=== PATIENT | female | born 1990 | race Caucasian/White ===

== ENCOUNTER 2021-04-01 15:15 | Inpatient (IN) | payer MEDICAID ==
[~2021-04-01] VITALS: Ht 160 cm; Wt 80.6 kg
[2021-04-01] VITALS (30 sets, daily range): BP systolic 117–214; BP diastolic 68–116
[2021-04-01 16:41] LABS: AMPHETAMINE SCREEN, URINE POSITIVE (NEGATIVE); BARBITURATE SCREEN URINE NEGATIVE (NEGATIVE); BENZODIAZEPINES SCREEN URINE NEGATIVE (NEGATIVE); CANNABINOID SCREEN, URINE NEGATIVE (NEGATIVE); COCAINE SCREEN URINE NEGATIVE (NEGATIVE); METHADONE STAT NEGATIVE (NEGATIVE); METHAMPHETAMINE SCREEN URINE S POSITIVE (NEGATIVE); OPIATE SCREEN URINE NEGATIVE (NEGATIVE); OXYCODONE STAT NEGATIVE (NEGATIVE); PROPOXYPHENE STAT NEGATIVE (NEGATIVE); TRICYCLIC ANTIDEPRESSANTS SCRE NEGATIVE (NEGATIVE)
[2021-04-01 16:45] LABS: BASOPHILS # (AUTO) 0.1 10^3/uL (0.0-0.1); BASOPHILS % (AUTO) 1 % (0-10); EOSINOPHILS # (AUTO) 0.3 10^3/uL (0.0-0.3); EOSINOPHILS % (AUTO) 4 % (0-10); HEMATOCRIT 40 % (35-52); HEMOGLOBIN 12.9 g/dL (11.5-16.0); LYMPHOCYTES # (AUTO) 1.4 10^3/uL (1.0-4.0); LYMPHOCYTES % (AUTO) 16 % (12-44); MEAN CORPUSCULAR HEMOGLOBIN 26 pg (25-34); MEAN CORPUSCULAR HGB CONC 32 g/dL (32-36); MEAN CORPUSCULAR VOLUME 80 fL (80-99); MONOCYTES # (AUTO) 1.3 10^3/uL (0.0-1.0); MONOCYTES % (AUTO) 15 % (0-12); NEUTROPHILS # (AUTO) 5.4 10^3/uL (1.8-7.8); NEUTROPHILS % (AUTO) 64 % (42-75); PLATELET COUNT 177 10^3/uL (130-400); WHITE BLOOD COUNT 8.5 10^3/uL (4.3-11.0)
[2021-04-01 16:52] LABS: URINE CREATININE FOR RATIO 45 MG/DL (30-125)
[2021-04-01 16:53] LABS: URINE PROTEIN FOR RATIO ONLY < 6 MG/DL (6-12)
[2021-04-01 16:58] LABS: POTASSIUM 3.7 MMOL/L (3.6-5.0)
[2021-04-01 16:59] LABS: CALCIUM 9.2 MG/DL (8.5-10.1)
[2021-04-01 17:01] LABS: TOTAL PROTEIN 6.1 GM/DL (6.4-8.2)
[2021-04-01 17:02] LABS: BILIRUBIN,TOTAL 0.2 MG/DL (0.1-1.0)
[2021-04-01 17:04] LABS: CREATININE SERUM 0.69 MG/DL (0.60-1.30)
[2021-04-01 17:17] LABS: ATYPICAL LYMPHOCYTES 1 %; BURR CELLS SLIGHT; EOSINOPHILS % (MANUAL) 5 %; LYMPHOCYTES % (MANUAL) 16 %; MONOCYTES % (MANUAL) 14 %; NEUTROPHILS % (MANUAL) 64 %; POLYCHROMASIA SLIGHT
[2021-04-01] MEDS ORDERED: fentaNYL 2 mcg/ml BUPIVA 0.125 100 ML ONE (20:50)
--- NOTE | 2021-04-01 20:50 | History & Physical-OB/GYN ---
CAMRYN NUNEZ 04/01/212049: OB - Chief Complaint & HPI Date/Time Date of Admission: Date of Admission: Apr 01, 2021 at 15:15 Date seen by a Provider: Apr 01, 2021 Time Seen by a Provider: 20:40 Chief Complaint/History OB-Reason for Admission/Chief: Obstetrical Complication (Gestational hypertension) Hx : 2 Hx Para: 1 Hx Last Menstrual Period: 07/12/2020 Expected Date of Delivery: Apr 08, 2021 Gestational Age in Weeks: 39 Gestational Age in Days: 0 Indication for induction: medical complication (Gestational hypertension) Admission Nurse Assessment Rev: Yes History of Labs Maternal blood type A+, RNI, GBS unknown, GDM unknown Allergies and Home Medications Allergies Coded Allergies: No Known Drug Allergies (Unverified , 04/01/21) Patient Home Medication List Home Medication List Reviewed: Yes OB - History Hx of Present Care: Yes Ultrasounds: Other (Anatomy US conducted at gestation of 33w6d) Obstetrical Complications: Gestational Hypertension (Blood pressures in clinic today before admitting were 162-168/98-104) Medical Complications: Other (Methamphetamine use, social concerns) Patient Past Medical History Asthma, , COVID, tobacco use, methamphetamine use Immunizations Hepatitis A: Yes Hepatitis B: Yes OB - Admission Exam Physical Exam Vitals: Vital Signs 04/01/21 04/01/21 15:31 19:00 Temp 36.7 Pulse 117 Resp 20 B/P (MAP) 129/101 (110) Pulse Ox 99 O2 Delivery Room Air Abdomen: Gravid Extremities: Normal (No edema present) Cervical Dilatation: 2cm Accelerations: Accelerations Present (Moderate accelerations present) Decelerations: No Decelerations (No decelerations present) Short Term Variability: Absent Half-Way Variability: Absent (0-2) Contractions on Admission: < 5 Minutes Apart Intensity: Mild (Mild contractions at this time) Keller Scoring Tool (Modified) Dilation (cm): 1-2cm (1) Labs Laboratory Tests Test 04/01/21 15:20 04/01/21 16:35 Range/Units Urine Protein < 6 L 6-12 MG/DL Urine Creatinine 45 30-125 MG/DL Urine Protein/Creatinine Ratio Urine Opiates Screen NEGATIVE NEGATIVE Urine Oxycodone Screen NEGATIVE NEGATIVE Urine Methadone Screen NEGATIVE NEGATIVE Urine Propoxyphene Screen NEGATIVE NEGATIVE Urine Barbiturates Screen NEGATIVE NEGATIVE Ur Tricyclic Antidepressants Screen NEGATIVE NEGATIVE Urine Phencyclidine Screen NEGATIVE NEGATIVE Urine Amphetamines Screen POSITIVE H NEGATIVE Urine Methamphetamines Screen POSITIVE H NEGATIVE Urine Benzodiazepines Screen NEGATIVE NEGATIVE Urine Cocaine Screen NEGATIVE NEGATIVE Urine Cannabinoids Screen NEGATIVE NEGATIVE White Blood Count 8.5 4.3-11.0 10^3/uL Red Blood Count 5.00 3.80-5.11 10^6/uL Hemoglobin 12.9 11.5-16.0 g/dL Hematocrit 40 35-52 % Mean Corpuscular Volume 80 80-99 fL Mean Corpuscular Hemoglobin 26 25-34 pg Mean Corpuscular Hemoglobin Concent 32 32-36 g/dL Red Cell Distribution Width 14.6 H 10.0-14.5 % Platelet Count 177 130-400 10^3/uL Mean Platelet Volume 12.0 9.0-12.2 fL Immature Granulocyte % (Auto) 1 % Neutrophils (%) (Auto) 64 42-75 % Lymphocytes (%) (Auto) 16 12-44 % Monocytes (%) (Auto) 15 H 0-12 % Eosinophils (%) (Auto) 4 0-10 % Basophils (%) (Auto) 1 0-10 % Neutrophils # (Auto) 5.4 1.8-7.8 10^3/uL Lymphocytes # (Auto) 1.4 1.0-4.0 10^3/uL Monocytes # (Auto) 1.3 H 0.0-1.0 10^3/uL Eosinophils # (Auto) 0.3 0.0-0.3 10^3/uL Basophils # (Auto) 0.1 0.0-0.1 10^3/uL Immature Granulocyte # (Auto) 0.1 0.0-0.1 10^3/uL Neutrophils % (Manual) 64 % Lymphocytes % (Manual) 16 % Monocytes % (Manual) 14 % Eosinophils % (Manual) 5 % Atypical Lymphocytes 1 % Polychromasia SLIGHT Contreras Cells SLIGHT Sodium Level 136 135-145 MMOL/L Potassium Level 3.7 3.6-5.0 MMOL/L Chloride Level 108 H 98-107 MMOL/L Carbon Dioxide Level 21 21-32 MMOL/L Anion Gap 7 5-14 MMOL/L Blood Urea Nitrogen 6 L 7-18 MG/DL Creatinine 0.69 0.60-1.30 MG/DL Estimat Glomerular Filtration Rate 101 BUN/Creatinine Ratio 9 Glucose Level 84 70-105 MG/DL Uric Acid 4.0 2.6-7.2 MG/DL Calcium Level 9.2 8.5-10.1 MG/DL Corrected Calcium 10.0 8.5-10.1 MG/DL Total Bilirubin 0.2 0.1-1.0 MG/DL Aspartate Amino Transf (AST/SGOT) 23 5-34 U/L Alanine Aminotransferase (ALT/SGPT) 15 0-55 U/L Alkaline Phosphatase 201 H 40-136 U/L Lactate Dehydrogenase 271 H 125-220 U/L Total Protein 6.1 L 6.4-8.2 GM/DL Albumin 3.0 L 3.2-4.5 GM/DL OB - Assessment/Plan/Diagnosis Assessment Assessment: induction of labor (Induction of labor due to gestational hypertension) Admission Dx Gestational hypertension Admission Status: Inpatient Order (span 2 midnights) Reason for Inpatient Admission: Gestational hypertension Plan Plan: Induction (Induction of labor due to gestational hypertension) REBECCA HENNING MD 04/02/21 1154: Allergies and Home Medications Allergies Coded Allergies: No Known Drug Allergies (Unverified , 04/01/21) OB - Admission Exam Physical Exam Accelerations: Accelerations Present (Moderate accelerations present) Decelerations: No Decelerations (No decelerations present) Half-Way Variability: Average (6-25) Keller Scoring Tool (Modified) Dilation (cm): 1-2cm (1) Effacement (%): 0-30% (0) Descent/Station: -3 (0) Cervix Consistency: Soft (2) Cervix Position: Posterior (0) Add 1 point for: Each previous vaginal delivery (1) Keller Score: 4 OB - Assessment/Plan/Diagnosis Plan Problems: (1) Elevated blood pressure affecting in third trimester, antepartum Assessment & Plan: Check preeclampsia labs, labetalol if needed for BP >160/105 (2) Methamphetamine abuse Assessment & Plan: creative services manager consult (3) Limited care Qualifiers: Qualified Codes: O09.33 - Supervision of with insufficient care, third trimester (4) GBS screening not performed Assessment & Plan: Will monitor temperature, start abx if fever or if prolonged ROM. (5) Rubella non-immune status, antepartum Assessment & Plan: MMR (6) 39 weeks gestation of Supervisory-Addendum Brief Verification & Attestation Participated in pt care: history, MDM, physical Personally performed: exam, history Care discussed with: Medical Student Procedures: n/a Verification and Attestation of Medical Student E/M Service A medical student performed and documented this service in my presence. I reviewed and verified all information documented by the medical student and made modifications to such information, when appropriate. I personally performed the physical exam and medical decision making. See problem list for my assessment and plan, and my physical exam for FHT and Keller score. Rebecca Henning, Apr 02, 2021,11:56 CAMRYN NUNEZ Apr 01, 2021 20:50 REBECCA HENNING MD Apr 02, 2021 11:54
[2021-04-01] MEDS ORDERED: D5 LR IV SOLUTION 1,000 ML IV ONE (20:51)
[2021-04-01] MEDS ORDERED: fentaNYL INJ 100 MCG/2 ML AMP ONE (21:09)
[2021-04-01] MEDS ORDERED: BUPIVACAINE 0.25% 30 ML (SENSORCAINE) VIAL ONE (21:09)
[2021-04-01] MEDS ORDERED: D5 LR IV SOLUTION 1,000 ML IV SCH (21:15)
[2021-04-01] MEDS: LACTATED RINGERS 1,000 ML IV SCH (21:19)
[2021-04-01] MEDS: D5 LR IV SOLUTION 1,000 ML IV SCH (21:20)
[2021-04-01] MEDS ORDERED: LIDOCAINE/EPI 2% 1:100,00 (XYLOCAINE) 20 ML VIAL INJ ONE (21:30)
[2021-04-01] MEDS ORDERED: NALOXONE 0.4 MG/ML 1 ML (NARCAN) VIAL IV PRN (21:30)
[2021-04-01] MEDS ORDERED: MINERAL OIL CONCENTRATE 99.9% 15 ML UDC PO ONE (21:30)
[2021-04-01] MEDS: fentaNYL 2 mcg/ml BUPIVA 0.125 100 ML IV SCH (21:40)
[2021-04-01] MEDS ORDERED: fentaNYL INJ 100 MCG/2 ML AMP INJ ONE (21:45)
[2021-04-01] MEDS ORDERED: CATHETER FLUSH 10 ML SYR IV SCH (22:00)
[2021-04-02] VITALS (62 sets, daily range): BP systolic 126–188; BP diastolic 67–118
[2021-04-02] MEDS ORDERED: fentaNYL 2 mcg/ml BUPIVA 0.125 100 ML IV SCH
[2021-04-02] MEDS ORDERED: METHYLERGONOVINE 0.2 MG (MEHTERGINE) TAB PO ONE (02:42)
[2021-04-02] MEDS ORDERED: OXYTOCIN PRE-MIX DRIP 500 ML IV ONE (04:35)
[2021-04-02] MEDS ORDERED: OXYTOCIN PRE-MIX DRIP 500 ML IV SCH (04:45)
[2021-04-02] MEDS: D5 LR IV SOLUTION 1,000 ML IV SCH (04:46)
[2021-04-02] MEDS: fentaNYL 2 mcg/ml BUPIVA 0.125 100 ML IV SCH (05:21)
[2021-04-02] MEDS: LACTATED RINGERS 1,000 ML IV SCH ×2 (07:44→07:45)
--- NOTE | 2021-04-02 07:59 | Labor Progress Note ---
Labor Progress Note Labor Progress Note Date Seen by Provider: Apr 02, 2021 Time Seen by Provider: 07:57 Subjective: Pt denies complaints. Objective: Cervical exam: /-3 Consistency: soft Position: mid Presentation: vertex heart tones: 150 beats per minute, moderate variability, no decels Tocometer: 4-5 ctx/10 minutes Assessment/Plan: Mago Chilel is a (30 /Para 2 / 1,Gestational Age (wks)39 here for IOL for gestational HTN. AROM done at time of exam with clear fluid. CEFM/TOCO Continue pitocin Anesthesia: epidural Anticipate vaginal delivery. Vitals - Labs Vital Signs - I&O Vital Signs Date Time Temp Pulse Resp B/P (MAP) Pulse Ox O2 Delivery O2 Flow Rate FiO2 04/02/21 07:00 94 18 158/97 (117) 98 04/02/21 06:45 95 18 162/92 (115) 97 04/02/21 06:30 37.2 106 18 141/92 (108) 100 04/02/21 06:15 98 18 136/102 (113) 98 04/02/21 06:00 102 18 141/105 (117) 97 04/02/21 05:45 104 18 137/99 (112) 97 04/02/21 05:30 115 18 130/74 (92) 98 04/02/21 05:15 109 18 136/91 (106) 97 04/02/21 05:00 117 18 159/72 (101) 98 04/02/21 04:45 106 18 147/81 (103) 97 04/02/21 04:30 96 18 159/68 (98) 97 04/02/21 04:15 100 18 156/95 (115) 97 04/02/21 04:00 96 18 138/94 (109) 97 04/02/21 03:45 108 18 154/82 (106) 97 04/02/21 03:30 108 18 164/92 (116) 100 04/02/21 03:15 111 18 147/93 (111) 99 04/02/21 03:00 97 18 145/99 (114) 99 04/02/21 02:45 95 18 144/95 (111) 99 04/02/21 02:30 94 18 142/93 (109) 99 04/02/21 02:15 96 18 155/100 (118) 100 10/7/21 02:00 118 18 126/92 (103) 98 04/02/21 01:45 131 18 126/76 (93) 99 04/02/21 01:35 36.8 04/02/21 01:30 112 18 151/87 (108) 98 04/02/21 01:15 113 18 154/91 (112) 100 04/02/21 01:00 109 18 167/98 (121) 98 04/02/21 00:45 116 18 141/96 (111) 98 04/02/21 00:30 110 18 135/95 (108) 97 04/02/21 00:15 115 18 139/98 (112) 97 04/02/21 00:00 111 18 154/105 (121) 100 04/01/21 23:45 103 18 151/102 (118) 100 04/01/21 23:30 114 18 151/99 (116) 99 04/01/21 23:15 98 18 151/103 (119) 99 04/01/21 23:00 107 20 150/101 (117) 99 04/01/21 22:45 111 20 130/85 (100) 99 04/01/21 22:30 120 20 117/68 (84) 98 04/01/21 22:10 121 80 138/88 (105) 97 04/01/21 22:05 121 80 138/88 (105) 97 04/01/21 22:00 110 20 143/68 (93) 98 04/01/21 21:55 112 80 139/88 (105) 98 04/01/21 21:50 113 80 133/86 (102) 98 04/01/21 21:45 115 80 173/97 (122) 98 04/01/21 21:40 148 80 148/80 (102) 98 04/01/21 21:35 114 20 140/68 (92) 99 04/01/21 21:30 106 20 158/99 (118) 100 04/01/21 21:25 109 20 169/97 (121) 98 04/01/21 21:20 105 20 146/89 (108) 100 04/01/21 21:15 96 20 135/91 (106) 99 04/01/21 21:15 37.0 04/01/21 21:00 104 20 136/88 (104) 99 04/01/21 20:45 104 20 130/83 (99) 04/01/21 20:30 101 20 143/102 (116) 04/01/21 20:15 110 20 167/107 (127) 04/01/21 20:00 100 20 157/94 (115) 04/01/21 19:35 107 20 214/115 (148) 04/01/21 19:00 117 20 129/101 (110) 04/01/21 18:30 88 20 153/110 (124) 04/01/21 18:00 120 20 175/116 (135) 04/01/21 17:35 107 20 140/104 (116) 04/01/21 16:00 101 20 140/82 (101) 04/01/21 15:31 36.7 103 20 99 Room Air I & O 04/02/21 07:00 Intake Total 2100 ml Balance 2100 ml Labs Laboratory Tests 04/01/21 15:20: Urine Protein < 6L, Urine Creatinine 45, Urine Protein/Creatinine Ratio , Urine Opiates Screen NEGATIVE, Urine Oxycodone Screen NEGATIVE, Urine Methadone Screen NEGATIVE, Urine Propoxyphene Screen NEGATIVE, Urine Barbiturates Screen NEGATIVE, Ur Tricyclic Antidepressants Screen NEGATIVE, Urine Phencyclidine Screen NEGATIVE, Urine Amphetamines Screen POSITIVEH, Urine Methamphetamines Screen POSITIVEH, Urine Benzodiazepines Screen NEGATIVE, Urine Cocaine Screen NEGATIVE, Urine Cannabinoids Screen NEGATIVE 04/01/21 16:35: White Blood Count 8.5, Red Blood Count 5.00, Hemoglobin 12.9, Hematocrit 40, Mean Corpuscular Volume 80, Mean Corpuscular Hemoglobin 26, Mean Corpuscular Hemoglobin Concent 32, Red Cell Distribution Width 14.6H, Platelet Count 177, Mean Platelet Volume 12.0, Immature Granulocyte % (Auto) 1, Neutrophils (%) (Auto) 64, Lymphocytes (%) (Auto) 16, Monocytes (%) (Auto) 15H, Eosinophils (%) (Auto) 4, Basophils (%) (Auto) 1, Neutrophils # (Auto) 5.4, Lymphocytes # (Auto) 1.4, Monocytes # (Auto) 1.3H, Eosinophils # (Auto) 0.3, Basophils # (Auto) 0.1, Immature Granulocyte # (Auto) 0.1, Neutrophils % (Manual) 64, Lymphocytes % (Manual) 16, Monocytes % (Manual) 14, Eosinophils % (Manual) 5, Atypical Lymphocytes 1, Polychromasia SLIGHT, Contreras Cells SLIGHT, Sodium Level 136, Potassium Level 3.7, Chloride Level 108H, Carbon Dioxide Level 21, Anion Gap 7, Blood Urea Nitrogen 6L, Creatinine 0.69, Estimat Glomerular Filtration Rate 101, BUN/Creatinine Ratio 9, Glucose Level 84, Uric Acid 4.0, Calcium Level 9.2, Corrected Calcium 10.0, Total Bilirubin 0.2, Aspartate Amino Transf (AST/SGOT) 23, Alanine Aminotransferase (ALT/SGPT) 15, Alkaline Phosphatase 201H, Lactate Dehydrogenase 271H, Total Protein 6.1L, Albumin 3.0L KAYA HENNING MD Apr 02, 2021 07:59
[2021-04-02] MEDS ORDERED: LIDOCAINE/EPI 2% 1:200,00 (XYLOCAINE) 20 ML VIAL ONE (10:44)
--- NOTE | 2021-04-02 11:47 | OB Labor & Delivery Record ---
Vag Delivery Note Vag Delivery Note Date of Delivery: 04/02/21 Preoperative Diagnosis: Mago Chilel is a (30 /Para 2 / 1,Gestational Age (wks)39with 1 day Postoperative Diagnosis: Same Surgeon: KAYA HENNING Reservations Specialist: Chelly Mosqueda, OMS3 Anesthesia: Epidural Delivery Type: Findings: Viable female infant, apgars 8/10, weight 6#8 Lacerations: periurethral abrasion, first degree perineal Intact placenta with 3 vessel cord. No nuchal cord or shoulder dystocia, bandolero cord noted. Cytotec 800 mcg placed for hemorrhage prophylaxis Estimated Blood Loss: 400 ml Complications: None Condition: Stable Description of Procedure: The patient is a 30 year old female who presented for IOL due to GHTN. She was admitted and informed consent was obtained. Her labor course was remarkable for HTN and urine drug screen positive for methamphetamines. She progressed to complete dilatation and began to push. She was then set up for delivery. The infant's head was delivered atraumatically in the BALTA position. The shoulders and remainder of the infant's body were then delivered without difficulty. Upon delivery, the was placed on maternal abdomen. The cord was doubly clamped and cut and the was handed off to the pediatric staff. An intact placenta with 3-vessel cord delivered via Maria Guadalupe and there was found to be moderate bleeding.~ Vigorous fundal massage was performed and the fundus was found to be firm. IV oxytocin was given. Examina tion of the vagina and perineum revealed a perirethral abrasion and a first degree perineal laceration repaired in the usual fashion with 3-0 vicryl rapide suture. Following the repair, sponge, instrument and needle counts were correct. Mom and baby were both in stable condition in the labor suite. Vitals - Labs Vital Signs - I&O Vital Signs Date Time Temp Pulse Resp B/P (MAP) Pulse Ox O2 Delivery O2 Flow Rate FiO2 04/02/21 08:46 99 18 136/67 (90) 100 Non Rebreather 15.00 04/02/21 08:45 81 18 173/102 (125) 100 Non Rebreather 15.00 04/02/21 08:30 103 18 150/101 (117) 99 Room Air 04/02/21 08:15 105 18 141/101 (114) 99 Room Air 04/02/21 08:00 108 18 138/94 (109) 99 Room Air 04/02/21 07:45 88 18 145/100 (115) 99 Room Air 04/02/21 07:30 93 18 141/101 (114) 98 Room Air 04/02/21 07:15 98 18 146/89 (108) 98 Room Air 04/02/21 07:00 94 18 158/97 (117) 98 04/02/21 06:45 95 18 162/92 (115) 97 04/02/21 06:30 37.2 106 18 141/92 (108) 100 04/02/21 06:15 98 18 136/102 (113) 98 04/02/21 06:00 102 18 141/105 (117) 97 04/02/21 05:45 104 18 137/99 (112) 97 04/02/21 05:30 115 18 130/74 (92) 98 04/02/21 05:15 109 18 136/91 (106) 97 04/02/21 05:00 117 18 159/72 (101) 98 04/02/21 04:45 106 18 147/81 (103) 97 04/02/21 04:30 96 18 159/68 (98) 97 04/02/21 04:15 100 18 156/95 (115) 97 04/02/21 04:00 96 18 138/94 (109) 97 04/02/21 03:45 108 18 154/82 (106) 97 04/02/21 03:30 108 18 164/92 (116) 100 04/02/21 03:15 111 18 147/93 (111) 99 04/02/21 03:00 97 18 145/99 (114) 99 04/02/21 02:45 95 18 144/95 (111) 99 04/02/21 02:30 94 18 142/93 (109) 99 04/02/21 02:15 96 18 155/100 (118) 100 04/02/21 02:00 118 18 126/92 (103) 98 04/02/21 01:45 131 18 126/76 (93) 99 04/02/21 01:35 36.8 04/02/21 01:30 112 18 151/87 (108) 98 04/02/21 01:15 113 18 154/91 (112) 100 04/02/21 01:00 109 18 167/98 (121) 98 04/02/21 00:45 116 18 141/96 (111) 98 04/02/21 00:30 110 18 135/95 (108) 97 04/02/21 00:15 115 18 139/98 (112) 97 04/02/21 00:00 111 18 154/105 (121) 100 04/01/21 23:45 103 18 151/102 (118) 100 04/01/21 23:30 114 18 151/99 (116) 99 04/01/21 23:15 98 18 151/103 (119) 99 04/01/21 23:00 107 20 150/101 (117) 99 04/01/21 22:45 111 20 130/85 (100) 99 04/01/21 22:30 120 20 117/68 (84) 98 04/01/21 22:10 121 80 138/88 (105) 97 04/01/21 22:05 121 80 138/88 (105) 97 04/01/21 22:00 110 20 143/68 (93) 98 04/01/21 21:55 112 80 139/88 (105) 98 04/01/21 21:50 113 80 133/86 (102) 98 04/01/21 21:45 115 80 173/97 (122) 98 04/01/21 21:40 148 80 148/80 (102) 98 04/01/21 21:35 114 20 140/68 (92) 99 04/01/21 21:30 106 20 158/99 (118) 100 04/01/21 21:25 109 20 169/97 (121) 98 04/01/21 21:20 105 20 146/89 (108) 100 04/01/21 21:15 96 20 135/91 (106) 99 04/01/21 21:15 37.0 04/01/21 21:00 104 20 136/88 (104) 99 04/01/21 20:45 104 20 130/83 (99) 04/01/21 20:30 101 20 143/102 (116) 04/01/21 20:15 110 20 167/107 (127) 04/01/21 20:00 100 20 157/94 (115) 04/01/21 19:35 107 20 214/115 (148) 04/01/21 19:00 117 20 129/101 (110) 04/01/21 18:30 88 20 153/110 (124) 04/01/21 18:00 120 20 175/116 (135) 04/01/21 17:35 107 20 140/104 (116) 04/01/21 16:00 101 20 140/82 (101) 04/01/21 15:31 36.7 103 20 99 Room Air I & O 04/02/21 06:59 Intake Total 2100 ml Balance 2100 ml Labs Laboratory Tests 04/01/21 15:20: Urine Protein < 6L, Urine Creatinine 45, Urine Protein/Creatinine Ratio , Urine Opiates Screen NEGATIVE, Urine Oxycodone Screen NEGATIVE, Urine Methadone Screen NEGATIVE, Urine Propoxyphene Screen NEGATIVE, Urine Barbiturates Screen NEGATIVE, Ur Tricyclic Antidepressants Screen NEGATIVE, Urine Phencyclidine Screen NEGATIVE, Urine Amphetamines Screen POSITIVEH, Urine Methamphetamines Screen POSITIVEH, Urine Benzodiazepines Screen NEGATIVE, Urine Cocaine Screen NEGATIVE, Urine Cannabinoids Screen NEGATIVE 04/01/21 16:35: White Blood Count 8.5, Red Blood Count 5.00, Hemoglobin 12.9, Hematocrit 40, Mean Corpuscular Volume 80, Mean Corpuscular Hemoglobin 26, Mean Corpuscular Hemoglobin Concent 32, Red Cell Distribution Width 14.6H, Platelet Count 177, Mean Platelet Volume 12.0, Immature Granulocyte % (Auto) 1, Neutrophils (%) (Auto) 64, Lymphocytes (%) (Auto) 16, Monocytes (%) (Auto) 15H, Eosinophils (%) (Auto) 4, Basophils (%) (Auto) 1, Neutrophils # (Auto) 5.4, Lymphocytes # (Auto) 1.4, Monocytes # (Auto) 1.3H, Eosinophils # (Auto) 0.3, Basophils # (Auto) 0.1, Immature Granulocyte # (Auto) 0.1, Neutrophils % (Manual) 64, Lymphocytes % (Manual) 16, Monocytes % (Manual) 14, Eosinophils % (Manual) 5, Atypical Lymphocytes 1, Polychromasia SLIGHT, Contreras Cells SLIGHT, Sodium Level 136, Potassium Level 3.7, Chloride Level 108H, Carbon Dioxide Level 21, Anion Gap 7, Blood Urea Nitrogen 6L, Creatinine 0.69, Estimat Glomerular Filtration Rate 101, BUN/Creatinine Ratio 9, Glucose Level 84, Uric Acid 4.0, Calcium Level 9.2, Corrected Calcium 10.0, Total Bilirubin 0.2, Aspartate Amino Transf (AST/SGOT) 23, Alanine Aminotransferase (ALT/SGPT) 15, Alkaline Phosphatase 201H, Lactate Dehydrogenase 271H, Total Protein 6.1L, Albumin 3.0L KAYA HENNING MD Apr 02, 2021 11:47
[2021-04-02] MEDS ORDERED: BENZOCAINE/MENTHOL (DERMOPLAST) 56 ML CAN TP PRN (12:30)
[2021-04-02] MEDS ORDERED: MEASLES,MUMPS,RUBELLA 1 EA INJ SQ ONE (12:30)
[2021-04-02] MEDS ORDERED: WITCH HAZEL(TUCKS) 40 EA JAR TOP PRN (12:30)
[2021-04-02] MEDS ORDERED: COVID-19 VACC, MRNA(PFIZER)/PF 30 MCG/0.3 ML VIAL IM ONE (12:30)
[2021-04-02] MEDS: OXYTOCIN PRE-MIX DRIP 500 ML IV SCH (12:40)
[2021-04-02] MEDS: CATHETER FLUSH 10 ML SYR IV SCH (14:07)
[2021-04-02] MEDS: ACETAMINOPHEN 500 MG TAB (TYLENOL) PO PRN ×2 (14:07→21:08)
[2021-04-02] MEDS ORDERED: FLU QUADRIvalent (3YOA+) 60 mcg/0.5 ml 2021-22(AFLURIA) IM ONE (15:45)
[2021-04-02] MEDS ORDERED: DOCUSATE SODIUM 100 MG (COLACE) CAP PO SCH (21:00)
[2021-04-03] MEDS: CATHETER FLUSH 10 ML SYR IV SCH (04:20)
[2021-04-03 04:30] VITALS: BP 130/86
[2021-04-03] MEDS: ACETAMINOPHEN 500 MG TAB (TYLENOL) PO PRN ×2 (04:30→13:09)
[2021-04-03 05:33] LABS: BASOPHILS # (AUTO) 0.1 10^3/uL (0.0-0.1); BASOPHILS % (AUTO) 1 % (0-10); EOSINOPHILS # (AUTO) 0.5 10^3/uL (0.0-0.3); EOSINOPHILS % (AUTO) 6 % (0-10); HEMATOCRIT 36 % (35-52); HEMOGLOBIN 11.7 g/dL (11.5-16.0); LYMPHOCYTES # (AUTO) 2.6 10^3/uL (1.0-4.0); LYMPHOCYTES % (AUTO) 27 % (12-44); MEAN CORPUSCULAR HEMOGLOBIN 26 pg (25-34); MEAN CORPUSCULAR HGB CONC 33 g/dL (32-36); MEAN CORPUSCULAR VOLUME 81 fL (80-99); MEAN PLATELET VOLUME 12.3 fL (9.0-12.2); MONOCYTES # (AUTO) 0.9 10^3/uL (0.0-1.0); MONOCYTES % (AUTO) 9 % (0-12); NEUTROPHILS # (AUTO) 5.4 10^3/uL (1.8-7.8); NEUTROPHILS % (AUTO) 57 % (42-75); PLATELET COUNT 168 10^3/uL (130-400); WHITE BLOOD COUNT 9.5 10^3/uL (4.3-11.0)
[2021-04-03] MEDS ORDERED: PRENATAL VITAMIN 1 EA TAB PO SCH (07:00)
[2021-04-03 10:35] VITALS: BP 134/100
[2021-04-03 13:10] VITALS: BP 136/81
--- NOTE | 2021-04-03 14:20 | Discharge Summary ---
Diagnosis/Chief Complaint Date of Admission Apr 01, 2021 at 15:15 Date of Discharge April 03, 2021 Admission Diagnosis Admission Diagnosis 1. Intrauterine at term 39 weeks 2. Gestational hypertension 3. Maternal methamphetamine use Discharge Diagnosis 1. Intrauterine at term 39 weeks 2. Gestational hypertension 3. Maternal methamphetamine use Chief Complaint/HPI Chief Complaint/HPI 30-year-old 2 now turned to L2 female who presented to women's services during the afternoon of April 01. She was monitored for blood pressure. Due to the gestational hypertension she was induced. She received her care which was late through [facility] in [facility]. Discharge Summary-OBS Procedures 1. Epidural per anesthesia 2. Spontaneous vaginal delivery 3. Repair of first-degree perineal laceration Discharge Physical Examination Allergies: Coded Allergies: No Known Drug Allergies (Unverified , 04/01/21) Vitals & I&Os Intake and Output 04/03/21 00:00 Intake Total 2000 ml Balance 2000 ml Vital Sign - Last 12Hours Date Time Temp Pulse Resp B/P (MAP) Pulse Ox O2 Delivery O2 Flow Rate FiO2 04/03/21 13:10 36.5 73 18 136/81 (99) 98 Room Air 04/02/21 11:15 15.00 General Appearance: Alert, No Acute Distress Respiratory: Clear to Auscultation Cardiovascular: Regular Rate Abdominal: Soft (with uterus firm) Hospital Course Was the Problem List Reviewed?: Yes following delivery patient underwent routine care orders. She had no complications during the remainder of hospital stay. She was able to tolerate regular diet and was ambulatory. She had complained of some uterine cramping that was controlled with ibuprofen. She was noted to have a hemoglobin of 11.7 in the morning of April 03 and this was compared to admission of 12.9 At time of dismissal her blood pressure was 136/81. She will follow up with Dr. Lugo in 6 weeks. Labs Laboratory Tests 04/03/21 05:13: White Blood Count 9.5, Red Blood Count 4.45, Hemoglobin 11.7, Hematocrit 36, Mean Corpuscular Volume 81, Mean Corpuscular Hemoglobin 26, Mean Corpuscular Hemoglobin Concent 33, Red Cell Distribution Width 14.8H, Platelet Count 168, Mean Platelet Volume 12.3H, Immature Granulocyte % (Auto) 1, Neutrophils (%) (Auto) 57, Lymphocytes (%) (Auto) 27, Monocytes (%) (Auto) 9, Eosinophils (%) (Auto) 6, Basophils (%) (Auto) 1, Neutrophils # (Auto) 5.4, Lymphocytes # (Auto) 2.6, Monocytes # (Auto) 0.9, Eosinophils # (Auto) 0.5H, Basophils # (Auto) 0.1, Immature Granulocyte # (Auto) 0.1 Discharge Instructions to patient/family Please see electronic discharge instructions given to patient. Discharge Medications Reviewed and agree with Discharge Medication list on patient's Discharge Instruction sheet AFSHIN PUGH MD Apr 03, 2021 14:20
--- NOTE | 2021-04-03 14:22 | Discharge Inst-Women's Service ---
Discharge Inst-Women's Serv Depart Medication/Instructions New, Converted or Re-Newed RX: Other Instructions May utilize ibuprofen 200 mg tablet and take 3 every 6 hours as needed for cramps or back pain from the site of epidural. Also if you have your vitamin go ahead and take this once daily for the next month. Be sure to have blood pressure checked at 6 week checkup or sooner if any visual or dizziness. Problems Reviewed?: Yes Consults/Follow Up Additional Follow Up: Yes (with Dr. Lugo in 6 weeks) Activity Activity: Activity as Tolerated Driving Instructions: No Driving for 1 Week Nothing Inside Vagina: No Cornish (for 6 weeks) Diet Discharge Diet: Regular Diet Return to The Hospital For: as below Symptoms to Report to : Bleeding Excessive, Fever Over 101 Degrees F, Vaginal Discharge Foul For Any Problems or Questions: Contact Your Physician AFSHIN PUGH MD Apr 03, 2021 14:22
--- NOTE | 2021-04-03 15:30 | Anesthesia-Regional Post-Op ---
Regional Patient Condition Mental Status: Alert, Oriented x3 Circulation: Same as Pre-Op Headache: Absent Sensation: Full Recovery Motor Block: Absent Post Op Complications Complications None Follow Up Care/Instructions Patient Instructions None needed. Anesthesia/Patient Condition Patient is doing well, no complaints, stable vital signs, no apparent adverse anesthesia problems. DAWN HARTMAN DO Apr 03, 2021 15:30
== END 2021-04-03 16:40 | disposition home or self-care (01) | DRG 807 ==
LOC: LDRP 15:15
PROVIDERS: ADMIT Family Medicine; ATTEND Family Medicine
PROC: 3E033VJ Introduction of Other Hormone into Peripheral Vein, Percutaneous Approach (ICD-10-PCS; 2021-04-01)
PROC: 10E0XZZ Delivery of Products of Conception, External Approach (ICD-10-PCS; principal; 2021-04-02)
PROC: 0HQ9XZZ Repair Perineum Skin, External Approach (ICD-10-PCS; 2021-04-02)
DX: O13.4 Gestational [pregnancy-induced] hypertension without significant proteinuria, complicating childbirth (principal); Z37.0 Single live birth; O70.0 First degree perineal laceration during delivery; O99.324 Drug use complicating childbirth; F15.10 Other stimulant abuse, uncomplicated; Z3A.39 39 weeks gestation of pregnancy; O99.334 Smoking (tobacco) complicating childbirth; F17.210 Nicotine dependence, cigarettes, uncomplicated; O99.52 Diseases of the respiratory system complicating childbirth; J45.909 Unspecified asthma, uncomplicated; O71.82 Other specified trauma to perineum and vulva; O69.89X0 Labor and delivery complicated by other cord complications, not applicable or unspecified; Z23 Encounter for immunization
CPT/HCPCS: 36415; 80053; 80306; 82570; 83615; 84156; 84550; 85007; 85025; 85027; 86780; 86850; 86900; 86901; 87340; 91300

== ENCOUNTER 2022-01-13 14:23 | Emergency (ER) | payer MEDICAID ==
[~2022-01-13] VITALS: Ht 160 cm; Wt 76.7 kg
--- NOTE | 2022-01-13 14:44 | ED Cough/URI ---
General Chief Complaint: COVID19 Suspect/Confirmed Stated Complaint: COUGH,SOB,WHEEZING,CONGESTION, Source: patient Exam Limitations: no limitations History of Present Illness Date Seen by Provider: Jan 13, 2022 Time Seen by Provider: 14:33 Initial Comments 31yoF with PMH of asthma coming in due to cough, SOB, and congestion. This sta rted on Tuesday. She took a breathing treatment for her asthma which has helped. Has tried some over the counter Robitussin. Denies fever, n/v/d, abd pain, chest pain, rash, dysuria, weakness, numbness, or any other concerns. Has had at least one COVID shot. Allergies and Home Medications Allergies Coded Allergies: No Known Drug Allergies (Unverified , 04/01/21) Patient Home Medication List Home Medication List Reviewed: Yes Methylprednisolone (Methylprednisolone Dose Pack) 4 Mg Tab.ds.pk, 4 MG PO UD Prescribed by: PJ BERMEO on 01/13/22 1532 Review of Systems Review of Systems Constitutional: No fever EENTM: No blurred vision Respiratory: cough, short of breath Cardiovascular: No chest pain Gastrointestinal: No abdominal pain Genitourinary: no symptoms reported Musculoskeletal: no symptoms reported Skin: no symptoms reported Psychiatric/Neurological: No Symptoms Reported Hematologic/Lymphatic: No Symptoms Reported Immunological/Allergic: no symptoms reported All Other Systems Reviewed Negative Unless Noted: Yes Past Xqsuzon-Dfuvac-Ktnizd Hx Patient Social History Substance use?: Yes Immunizations Up To Date First/Initial COVID19 Vaccinat: 02/23 Past Medical History Surgeries: No Physical Exam Vital Signs - First Documented Capillary Refill : Height: '" Weight: lbs. oz. kg; 31.48 BMI Method: General Appearance: WD/WN, no apparent distress Eyes: Bilateral Eye Normal Inspection HEENT: PERRL/EOMI, normal ENT inspection, pharynx normal Neck: non-tender, full range of motion, supple, normal inspection Respiratory: chest non-tender, no respiratory distress, no accessory muscle use, wheezing Cardiovascular: regular rate, rhythm, no edema, no murmur Gastrointestinal: normal bowel sounds, non tender, soft; No distended, No guarding, No rebound Extremities: normal range of motion, non-tender, normal inspection, no pedal edema, no calf tenderness, normal capillary refill Neurologic/Psychiatric: no motor/sensory deficits, alert, normal mood/affect Skin: normal color, warm/dry Lymphatic: no adenopathy Progress/Results/Core Measures Suspected Sepsis SIRS Temperature: Pulse: Respiratory Rate: Blood Pressure / Mean: Results/Orders Lab Results Laboratory Tests Test 01/13/22 14:45 Range/Units Influenza Type A (RT-PCR) Not Detected Not Detecte Influenza Type B (RT-PCR) Not Detected Not Detecte SARS-CoV-2 RNA (RT-PCR) Not Detected Not Detecte My Orders Orders - PJ BERMEO MD Urine Bedside (01/13/22 14:34) Chest 1 View, Ap/Pa Only (01/13/22 14:56) Albuterol/Ipra Inhalation Soln (Duoneb I (01/13/22 15:00) Svn Small Volume Nebulizer (01/13/22 14:56) Dexamethasone Oral Soln (Ed) (Decadron I (01/13/22 14:56) Medications Given in ED Current Medications Medications Dose Ordered Sig/Abel Route Start Time Stop Time Status Last Admin Dose Admin Albuterol/ Ipratropium 3 ml ONCE ONCE INH 01/13/22 15:00 01/13/22 15:01 DC 01/13/22 15:01 3 ML Vital Signs/I&O 01/13/22 01/13/22 14:38 14:38 Temp 37.1 Pulse 94 Resp 16 B/P (MAP) 141/93 (109) Pulse Ox 98 O2 Delivery Room Air Room Air Capillary Refill : Progress Note : Progress Note 31-year-old female with above history coming in due to cough, congestion, shortness of breath. ABCs were intact and vitals were stable on presentation. Physical exam with some mild wheezing. She was given a DuoNeb as well as Decadron given her history of asthma. He is not tachypneic, oxygen saturations normal, and does not have any significant increase in work of breathing. She is finishing her sentences comfortably. Chest x-ray ordered and interpreted by me showing no obvious opacities, pneumothorax, cardiac silhouette is normal. COVID and flu test sent and are pending. Overall, I believe the patient is stable for discharge with outpatient follow-up with strict return precautions Departure Impression Primary Impression: Asthma exacerbation Qualified Codes: J45.21 - Mild intermittent asthma with (acute) exacerbation Disposition: 01 HOME, SELF-CARE Condition: Stable Departure-Patient Inst. Decision time for Depature: 15:35 Referrals: NO,LOCAL PHYSICIAN (PCP) Primary Care Physician GENIA HERNÁNDEZ (Family) Primary Care Physician Patient Instructions: Asthma, Adult ED Add. Discharge Instructions: You have a virus that has made your asthma flareup. I recommend getting her self nebulizer treatments at least every 4 hours for the next couple of days. Steroids were sent to your pharmacy which you should start tomorrow since you already had a dose today. If you begin feeling significantly more short of breath to where you cannot finish sentences, or you have any other concerns then please come back to the ER. Otherwise please call your doctor in the next couple days for follow-up. Scripts Methylprednisolone (Methylprednisolone Dose Pack) 4 Mg Tab.ds.pk 4 MG PO UD for 6 Days, #21 PKG PER DOSE PACK INSTRUCTIONS Prov: PJ BERMEO MD 01/13/22 Work/School Note: Work Release Form Date Seen in the Emergency Department: Jan 13, 2022 Return to Work: Jan 15, 2022 Restrictions: No Restrictions PJ BERMEO MD Jan 13, 2022 14:44
[2022-01-13] MEDS ORDERED: RT-ALBUTEROL/IPRATROPIUM 3 ML (DUONEB) VIAL INH ONE (15:00)
[2022-01-13] MEDS ORDERED: METH4TAB10 PO (15:32)
--- NOTE | 2022-01-13 15:36 | Diagnostic Imaging Report ---
CHEST 1 VIEW, AP/PA ONLY Indication: Cough and shortness of breath Comparison: None available. Findings: No focal airspace disease in the visualized lungs. Please note that the posterior lower lobes are poorly evaluated by portable radiography. Hazy opacities at medial right lung base are due to summation shadow patient's breast tissue. No pleural effusion or pneumothorax. Normal cardiomediastinal silhouette. Impression: 1. No acute cardiopulmonary process by portable radiography. Dictated by: Dictated on workstation # [id number]
[2022-01-13 15:40] VITALS: BP 126/81
== END 2022-01-13 15:40 | disposition home or self-care (01) ==
LOC: EDUNIT# 14:23 → ER 14:25
DX: J45.901 Unspecified asthma with (acute) exacerbation (principal); Z20.822 Contact with and (suspected) exposure to COVID-19
CPT/HCPCS: 71045; 84703; 87636

== ENCOUNTER 2022-01-15 15:26 | Inpatient (IN) | payer MEDICAID ==
[~2022-01-15] VITALS: Ht 160 cm; Wt 75.2 kg
[~2022-01-15 15:26] MED LIST: METH4TAB10 PO
[2022-01-15] MEDS ORDERED: methylPREDNISolone 125 MG (Solu-MEDROL) VIAL IVP ONE (15:30)
--- NOTE | 2022-01-15 15:32 | ED Respiratory ---
General Chief Complaint: Respiratory Problems Stated Complaint: ASTHMA ATTACK Source: patient Exam Limitations: no limitations (PJ MATHEW) History of Present Illness Date Seen by Provider: Jan 15, 2022 Time Seen by Provider: 15:30 Initial Comments Patient is a 31-year-old female presents ED with shortness of breath, wheezing. Symptoms started this morning. Started feeling short of breath took a breathing treatment at home. She went to work around 1230 started having severe chest tightness. Used a nebulizer treatment and her inhaler without much improvement. On arrival mild distress. Patient Was seen here 2 days ago for asthma exacerbation. She tested positive for COVID influenza. Patient talking in minimal sentences. Denies any vomiting, diarrhea, fever, chills, visual changes. Patient with notable wheezing throughout. (PJ MATHEW) Allergies and Home Medications Allergies Coded Allergies: No Known Drug Allergies (Unverified , 04/01/21) Patient Home Medication List Home Medication List Reviewed: Yes (PJ MATHEW) Methylprednisolone (Methylprednisolone Dose Pack) 4 Mg Tab.ds.pk, 4 MG PO UD Prescribed by: PJ BERMEO on 01/13/22 1532 Review of Systems Review of Systems Constitutional: No chills, No diaphoresis EENTM: No ear pain, No blurred vision, No double vision Respiratory: cough, short of breath Cardiovascular: No edema Gastrointestinal: No abdominal pain, No nausea, No vomiting Genitourinary: No decreased output, No discharge Musculoskeletal: No back pain, No joint pain Skin: No change in color, No change in hair/nails (PJ MATHEW) All Other Systems Reviewed Negative Unless Noted: Yes (PJ MATHEW) Past Uikbalk-Ufbnjh-Cjszvv Hx Immunizations Up To Date First/Initial COVID19 Vaccinat: JAN 2021 Second COVID19 Vaccination Ace: 2020 (PJ MATHEW) Past Medical History Surgery/Hospitalization HX: ASTHMA Surgeries: No (PJ MATHEW) Physical Exam Vital Signs - First Documented 01/15/22 15:26 Temp 36.3 Pulse 130 Resp 16 B/P (MAP) 144/101 (115) Pulse Ox 97 O2 Delivery Room Air (MARCIAL YORK MD) Capillary Refill : (PJ MATHEW) Height: '" Weight: lbs. oz. kg; 29.00 BMI Method: General Appearance: WD/WN, no apparent distress Eyes: Bilateral Eye Normal Inspection, Bilateral Eye EOMI, Bilateral Eye Abnormal EOM HEENT: PERRL/EOMI, normal ENT inspection, TMs normal, pharynx normal Neck: non-tender, full range of motion, supple Respiratory: normal breath sounds, accessory muscle use, wheezing, expiration Cardiovascular: no edema, no gallop, no JVD, tachycardia Gastrointestinal: normal bowel sounds, non tender, soft, no organomegaly Extremities: normal range of motion, non-tender, normal inspection, no pedal edema Neurologic/Psychiatric: security ambassador II-XII nml as tested, no motor/sensory deficits, alert, normal mood/affect, oriented x 3 Skin: normal color, warm/dry (PJ MATHEW) Focused Exam Lactate Level 01/15/22 18:25: Lactic Acid Level 1.61 (MARCIAL YORK MD) Lactic Acid Level Laboratory Tests Test 01/15/22 18:25 Lactic Acid Level 1.61 MMOL/L (0.50-2.00) (MARCIAL YORK MD) Progress/Results/Core Measures Suspected Sepsis SIRS Temperature: Pulse: Respiratory Rate: Laboratory Tests 01/15/22 15:33: White Blood Count 10.5 Blood Pressure / Mean: 01/15/22 18:25: Lactic Acid Level 1.61 Laboratory Tests 01/15/22 15:33: Creatinine 0.92, Platelet Count 269, Total Bilirubin 0.5 (PJ MATHEW) Results/Orders Lab Results Laboratory Tests Test 01/15/22 15:33 01/15/22 18:25 01/15/22 18:30 Range/Units White Blood Count 10.5 4.3-11.0 10^3/uL Red Blood Count 4.59 3.80-5.11 10^6/uL Hemoglobin 11.3 L 11.5-16.0 g/dL Hematocrit 36 35-52 % Mean Corpuscular Volume 78 L 80-99 fL Mean Corpuscular Hemoglobin 25 25-34 pg Mean Corpuscular Hemoglobin Concent 32 32-36 g/dL Red Cell Distribution Width 16.3 H 10.0-14.5 % Platelet Count 269 130-400 10^3/uL Mean Platelet Volume 10.4 9.0-12.2 fL Immature Granulocyte % (Auto) 0 % Neutrophils (%) (Auto) 70 42-75 % Lymphocytes (%) (Auto) 17 12-44 % Monocytes (%) (Auto) 9 0-12 % Eosinophils (%) (Auto) 3 0-10 % Basophils (%) (Auto) 0 0-10 % Neutrophils # (Auto) 7.3 1.8-7.8 X 10^3 Lymphocytes # (Auto) 1.8 1.0-4.0 X 10^3 Monocytes # (Auto) 1.0 0.0-1.0 X 10^3 Eosinophils # (Auto) 0.4 H 0.0-0.3 10^3/uL Basophils # (Auto) 0.0 0.0-0.1 10^3/uL Immature Granulocyte # (Auto) 0.0 0.0-0.1 10^3/uL Sodium Level 143 135-145 MMOL/L Potassium Level 3.4 L 3.6-5.0 MMOL/L Chloride Level 107 98-107 MMOL/L Carbon Dioxide Level 21 21-32 MMOL/L Anion Gap 15 H 5-14 MMOL/L Blood Urea Nitrogen 12 7-18 MG/DL Creatinine 0.92 0.60-1.30 MG/DL Estimat Glomerular Filtration Rate 86 BUN/Creatinine Ratio 13 Glucose Level 93 70-105 MG/DL Calcium Level 9.5 8.5-10.1 MG/DL Corrected Calcium 9.1 8.5-10.1 MG/DL Total Bilirubin 0.5 0.1-1.0 MG/DL Aspartate Amino Transf (AST/SGOT) 25 5-34 U/L Alanine Aminotransferase (ALT/SGPT) 17 0-55 U/L Alkaline Phosphatase 52 40-136 U/L Total Protein 7.3 6.4-8.2 GM/DL Albumin 4.5 3.2-4.5 GM/DL Procalcitonin 0.04 <0.10 NG/ML Serum Test, Qualitative NEGATIVE NEGATIVE Lactic Acid Level 1.61 0.50-2.00 MMOL/L Influenza Type A (RT-PCR) Not Detected Not Detecte Influenza Type B (RT-PCR) Not Detected Not Detecte SARS-CoV-2 RNA (RT-PCR) Not Detected Not Detecte Blood Gas Puncture Site LEFT RADIAL Blood Gas Patient Temperature 36.7 Arterial Blood pH 7.42 7.37-7.43 Arterial Blood Partial Pressure CO2 36 35-45 MMHG Arterial Blood Partial Pressure O2 54 L 79-93 MMHG Arterial Blood HCO3 23 23-27 MMOL/L Arterial Blood Total CO2 24.1 21.0-31.0 MMOL/L Arterial Blood Oxygen Saturation 91 L 94-100 % Arterial Blood Base Excess -1.0 -2.5-2.5 MMOL/L Nic Test YES-POS Blood Gas Ventilator Setting NO Blood Gas Inspired Oxygen 2 (MARCIAL YORK MD) Medications Given in ED Current Medications Medications Dose Ordered Sig/Abel Route Start Time Stop Time Status Last Admin Dose Admin Methylprednisolone Sodium Succinate 125 mg ONCE ONCE IVP 01/15/22 15:30 01/15/22 15:31 DC 01/15/22 15:33 125 MG (MARCIAL YORK MD) Vital Signs/I&O 01/15/22 01/15/22 15:26 15:45 Temp 36.3 Pulse 130 Resp 16 B/P (MAP) 144/101 (115) Pulse Ox 97 95 O2 Delivery Room Air (MARCIAL YORK MD) Vital Signs/I&O Capillary Refill : (PJ MATHEW) Departure Communication (PCP) Patient with a history of asthma presents ED with shortness of breath, chest tightness and wheezing. Patient talking in short sentences. Diffuse expiratory wheezing. Oxygen was in the mid to lower 90s on arrival. Patient was given a 1 hour-long albuterol treatment and IV Solu-Medrol 125 mg. Patient oxygen fluctuated between upper 80s and low 90s. Was placed on 2 L oxygen for comfort. Was seen here 2 days ago given DuoNeb breathing treatment and discharged with Medrol Dosepak without much improvement. She states she had some symptoms of cough, chest tightness and wheezing 2 days ago. She does have an albuterol inhaler and a albuterol nebulizer treatment without much improvement today. Due to the continue significant wheezing requiring oxygen for comfort patient will be admitted for further evaluation and breathing treatments. Patient lab work was unremarkable. COVID influenza negative. Chest x-ray was negative for pneumonia. Patient with normal lactic acid. Negative for . ABG did show pH of 7.42, PCO2 36, PO2 of 54. Patient states she was feeling a little better but still having chest tightness. Patient was discussed with Dr. Beatty who accepts patient to the ICU. (PJ MATHEW) Impression Primary Impression: Asthma exacerbation Disposition: ADMITTED INPATIENT Condition: Stable Admissions Decision to Admit Reason: Admit from ER (General) Decision to Admit/Date: Jan 15, 2022 Time/Decision to Admit Time: 18:19 (PJ MATHEW) Departure-Patient Inst. Referrals: NO,LOCAL PHYSICIAN (PCP) Primary Care Physician GENIA HERNÁNDEZ (Family) Primary Care Physician ATTENDING PHYSICIAN NOTE: I was physically present as attending physician in the emergency department during the care of this patient, but I was not directly involved in the decision making or delivery of care for this patient. (MARCIAL YORK MD) PJ MATHEW Jan 15, 2022 15:32 MARCIAL YORK MD Jan 15, 2022 20:09
[2022-01-15 15:44] LABS: BASOPHILS % (AUTO) 0 % (0-10); EOSINOPHILS # (AUTO) 0.4 10^3/uL (0.0-0.3); EOSINOPHILS % (AUTO) 3 % (0-10); HEMATOCRIT 36 % (35-52); HEMOGLOBIN 11.3 g/dL (11.5-16.0); LYMPHOCYTES # (AUTO) 1.8 X 10^3 (1.0-4.0); LYMPHOCYTES % (AUTO) 17 % (12-44); MEAN CORPUSCULAR HEMOGLOBIN 25 pg (25-34); MEAN CORPUSCULAR HGB CONC 32 g/dL (32-36); MEAN CORPUSCULAR VOLUME 78 fL (80-99); MEAN PLATELET VOLUME 10.4 fL (9.0-12.2); MONOCYTES % (AUTO) 9 % (0-12); NEUTROPHILS # (AUTO) 7.3 X 10^3 (1.8-7.8); NEUTROPHILS % (AUTO) 70 % (42-75); PLATELET COUNT 269 10^3/uL (130-400); WHITE BLOOD COUNT 10.5 10^3/uL (4.3-11.0)
[2022-01-15 15:55] LABS: ALBUMIN 4.5 GM/DL (3.2-4.5)
[2022-01-15 15:56] LABS: POTASSIUM 3.4 MMOL/L (3.6-5.0)
[2022-01-15 15:57] LABS: CALCIUM 9.5 MG/DL (8.5-10.1)
[2022-01-15 15:58] LABS: TOTAL PROTEIN 7.3 GM/DL (6.4-8.2)
--- NOTE | 2022-01-15 15:58 | Diagnostic Imaging Report ---
INDICATION: Asthma attack this morning. Inhaler is not useful. Cough. EXAMINATION: Two-view chest from 01/15/2022. COMPARISON: 01/13/2022. FINDINGS: The heart and pulmonary vasculature are normal. Minimally coarsened interstitial markings noted in the lower lungs, likely atelectasis. No infiltrates, effusions, or pneumothorax appreciated. IMPRESSION: 1. Bibasilar atelectasis. Otherwise, negative chest. Dictated by: Dictated on workstation # [id number]
[2022-01-15 16:00] LABS: BILIRUBIN,TOTAL 0.5 MG/DL (0.1-1.0)
[2022-01-15 16:02] LABS: CREATININE SERUM 0.92 MG/DL (0.60-1.30)
[2022-01-15 18:38] LABS: ABG OXYGEN SATURATION 91 % (94-100); ABG PCO2 36 MMHG (35-45); ABG PH 7.42 (7.37-7.43); ABG PO2 54 MMHG (79-93); ABG TCO2 24.1 MMOL/L (21.0-31.0)
[2022-01-15 18:39] LABS: ALLENS TEST YES-POS; INSPIRED O2 2; PATIENT TEMP 36.7; VENTILATOR NO
[2022-01-15] MEDS ORDERED: ENOXAPARIN 40 MG/0.4 ML (LOVENOX) SYR SC SCH (19:45)
[2022-01-15] MEDS ORDERED: MELATONIN 3 MG TABLET PO PRN (19:45)
[2022-01-15] MEDS ORDERED: morphine INJ 4 MG/ML 1 ML (VIAL/SYRINGE) IV PRN (19:45)
[2022-01-15] MEDS ORDERED: HYDROcodone/APAP 5 MG/325 MG (LORTAB) TAB PO PRN (19:45)
[2022-01-15] MEDS ORDERED: BISACODYL 10 MG SUPP (DULCOLAX) PR PRN (19:45)
[2022-01-15] MEDS ORDERED: ONDANSETRON 4 MG (ZOFRAN) ORAL DISSOLVE TAB PO PRN (19:45)
[2022-01-15] MEDS ORDERED: LACTULOSE SYRUP 10GM/15ML (ENULOSE) 30ML UDC PO PRN (19:45)
[2022-01-15] MEDS ORDERED: diphenhydrAMINE 25 MG TAB (BENADRYL) PO PRN (19:45)
[2022-01-15] MEDS ORDERED: ONDANSETRON 4 MG/2 ML (SDV) Z0FRAN IV PRN (19:45)
[2022-01-15] MEDS ORDERED: NALOXONE 0.4 MG/ML 1 ML (NARCAN) VIAL IV PRN (19:45)
[2022-01-15] MEDS ORDERED: ANTACID SUSP 30 ML UDC (MYLANTA) PO PRN (19:45)
[2022-01-15] MEDS ORDERED: diphenhydrAMINE 50 MG/ML INJ (BENADRYL) IVP PRN (19:45)
[2022-01-15] MEDS ORDERED: CALCIUM CARBONATE 500 MG (TUMS) TAB.CHEW PO PRN (19:45)
[2022-01-15] MEDS ORDERED: ACETAMINOPHEN 325 MG TABLET PO PRN (19:45)
[2022-01-15] MEDS ORDERED: polyethylene glycoL POWDER 17 GM (MIRALAX) PACK PO PRN (19:45)
[2022-01-15] MEDS ORDERED: MILK OF MAGNESIA 400 MG/5 ML 30 ML UDC PO PRN (19:45)
[2022-01-15] MEDS ORDERED: HYDROcodone/APAP 5 MG/325 MG (LORTAB) TAB ONE (20:02)
[2022-01-15] MEDS ORDERED: ADVAIR HFA 115/21 MCG INHALER 8 GM IH SCH (21:00)
[2022-01-15] MEDS ORDERED: RT-ALBUTEROL SULF 2.5 MG/3 ML PRE-MIX VIAL ONE (21:11)
[2022-01-15] MEDS ORDERED: RT-ALBUTEROL SULF 2.5 MG/3 ML PRE-MIX VIAL INH PRN (21:15)
--- NOTE | 2022-01-15 21:36 | Tele-ICU Progress Note ---
Subjective Date Seen by a Provider: Jan 15, 2022 Time Seen by a Provider: 20:30 Subjective/Events-last exam (Tele-ICU Physician , consultation) New ICU admission for status asthmaticus. Available chart/ vitals / labs / Images reviewed H&P is from ER notes Patient's information available about PMH, allergy reviewed in EMR. ROS as per chart and RN report Video assessment done using teleICU camera, rest of exam as per RN Consultants: N/A Hospital course: 31 yo F admitted via ED for severe asthma exacerbation. ABG reviewed, CXR reviewed. BPAP. Lines: (Central Line Necessity Reviewed) Jackson: N/A OG: N/A Nutrition: Per routine Analgesia: N/A VTE Prophylaxis: Lovenox Stress Ulcer Prophylaxis: PPI Plans in collaboration with bedside consultants and Primary MD. RN to reach out if any questions or concerns Assessment/Plan Assessment/Plan 31 yo F admitted with status asthmaticus. CXR, labs reviewed Weaned off NIV Steroids, nebs rec'd Negative sepsis, COVID screen. 1. Asthma exacerbation Continue current management, ISB, no obvious pneumonia by CXR. COVID negative 2. PPI DOEING,RYAN Conrad MD Jan 15, 2022 21:36
[2022-01-15] MEDS: DOCUSATE SODIUM 100 MG (COLACE) CAP PO SCH (22:11)
[2022-01-15] MEDS: SENNOSIDES 8.6 MG (SENOKOT) TAB PO SCH (22:12)
[2022-01-15] MEDS: MONTELUKAST 10 MG (SINGULAIR) TAB PO SCH (22:15)
[2022-01-15 22:30] VITALS: BP 143/95
[2022-01-15] MEDS: methylPREDNISolone 40 MG/ML (Solu-MEDROL) VIAL IV SCH (23:34)
[2022-01-16] MEDS: RT-ALBUTEROL SULF 2.5 MG/3 ML PRE-MIX VIAL INH SCH ×6 (02:31→22:41)
[2022-01-16 04:58] LABS: BASOPHILS % (AUTO) 0 % (0-10); EOSINOPHILS % (AUTO) 0 % (0-10); HEMATOCRIT 36 % (35-52); HEMOGLOBIN 11.3 g/dL (11.5-16.0); LYMPHOCYTES # (AUTO) 0.9 10^3/uL (1.0-4.0); LYMPHOCYTES % (AUTO) 11 % (12-44); MEAN CORPUSCULAR HEMOGLOBIN 25 pg (25-34); MEAN CORPUSCULAR HGB CONC 32 g/dL (32-36); MEAN CORPUSCULAR VOLUME 78 fL (80-99); MEAN PLATELET VOLUME 11.3 fL (9.0-12.2); MONOCYTES # (AUTO) 0.3 10^3/uL (0.0-1.0); MONOCYTES % (AUTO) 4 % (0-12); NEUTROPHILS # (AUTO) 6.4 10^3/uL (1.8-7.8); NEUTROPHILS % (AUTO) 85 % (42-75); PLATELET COUNT 261 10^3/uL (130-400); WHITE BLOOD COUNT 7.6 10^3/uL (4.3-11.0)
[2022-01-16 05:18] LABS: ALBUMIN 4.4 GM/DL (3.2-4.5); BILIRUBIN,TOTAL 0.3 MG/DL (0.1-1.0); CALCIUM 9.8 MG/DL (8.5-10.1); CREATININE SERUM 0.78 MG/DL (0.60-1.30); MAGNESIUM 1.8 MG/DL (1.6-2.4); PHOSPHORUS 3.9 MG/DL (2.3-4.7); POTASSIUM 4.1 MMOL/L (3.6-5.0); TOTAL PROTEIN 7.3 GM/DL (6.4-8.2)
[2022-01-16] MEDS: MAGNESIUM 1 GM/100 ML IVPB 100 ML IV SCH (05:24)
[2022-01-16] MEDS: POTASSIUM CL 10MEQ/50ML IVPB 50 ML IV SCH (05:24)
[2022-01-16] MEDS: KCL 20 MEQ TAB (K-DUR) PO SCH (05:24)
[2022-01-16] MEDS: methylPREDNISolone 40 MG/ML (Solu-MEDROL) VIAL IV SCH ×4 (06:18→22:57)
[2022-01-16] MEDS: PANTOPRAZOLE 40 MG (PROTONIX) TAB PO SCH (06:18)
--- NOTE | 2022-01-16 07:11 | Short Stay Summary-Hospitalist ---
History of Present Illness HPI/Chief Complaint CC: Status asthmaticus HPI: This is a 31yoF of [facility] who has a h/o asthma but never was intubated with most recent exacerbation was in 2019 with COVID who presented to the ER in status asthmaticus after failing outpatient therapy. IV steroids initiated and patient was admitted to ICU due to critically low O2 levels with high risk for intubation. She continues to have very coarse breath sounds and cough and tachycardia and dyspnea so she will remain in ICU due to severity of her exacerbation. Anti-tussives will be initiated along with ICS and Singulair and Claritin. Source: patient Exam Limitations: no limitations Date Seen 01/16/22 Time Seen by a Provider: 11:30 Attending Physician No,Local Physician PCP Admitting Physician: Heidy Beatty DO Attending Physician: Heidy Beatty DO Referring Physician Date of Admission Jan 15, 2022 at 19:14 Home Medications & Allergies Home Medications Reviewed patient Home Medication Reconciliation performed by pharmacy medication reconciliations armorer technician and/or nursing. Patients Allergies have been reviewed. Allergies Allergies Coded Allergies No Known Drug Allergies ([id number]/6/21) Past Hejopey-Isdyrn-Zitvel Hx Patient Social History Marrital Status: single Employed/Student: employed Tobacco Use?: No Smoking Status: Former Smoker Substance use?: No Alcohol Use?: No Immunizations Up To Date First/Initial COVID19 Vaccinat: JAN 2021 Second COVID19 Vaccination Ace: RAMSEY Tetanus Booster (TDap): Unknown Hepatitis A: Yes Hepatitis B: Yes Current Status status: No Advance Directives: No Communicates: Verbally Primary Language: Divehi Preferred Spoken Language: Divehi Is interpretation needed?: No Past Medical History Asthma Asthma, , COVID, tobacco use, methamphetamine use Review of Systems Constitutional: see HPI, malaise, weakness EENTM: no symptoms reported Respiratory: cough, dyspnea on exertion, short of breath, wheezing Cardiovascular: no symptoms reported Gastrointestinal: no symptoms reported Genitourinary: no symptoms reported Musculoskeletal: no symptoms reported Skin: no symptoms reported Psychiatric/Neurological: No Symptoms Reported All Other Systems Reviewed Negative Unless Noted: Yes Physical Exam Physical Exam Vital Signs Vital Signs - First Documented 01/15/22 01/15/22 15:26 19:36 Temp 36.3 Pulse 130 Resp 16 B/P (MAP) 144/101 (115) Pulse Ox 97 O2 Delivery Room Air O2 Flow Rate 2.00 Capillary Refill : Less Than 3 Seconds Height, Weight, BMI Height: '" Weight: lbs. oz. kg; 30.07 BMI Method: General Appearance: WD/WN, Anxious, Mild Distress Eyes: Bilateral Eye Normal Inspection, Bilateral Eye EOMI, Bilateral Eye Abnormal EOM HEENT: PERRL/EOMI, Normal ENT Inspection, Pharynx Normal Neck: Full Range of Motion, Normal Inspection, Non Tender, Supple, Carotid Bruit Respiratory: No Respiratory Distress, Accessory Muscle Use, Crackles, Decreased Breath Sounds, Rales, Wheezing Cardiovascular: No Edema, No Gallop, No JVD, No Murmur, Normal Peripheral Pulses, Tachycardia Gastrointestinal: Normal Bowel Sounds, No Organomegaly, No Pulsatile Mass, Non Tender, Soft Back: Normal Inspection, No CVA Tenderness, No Vertebral Tenderness Extremity: Normal Capillary Refill, Normal Inspection, Normal Range of Motion, Non Tender, No Calf Tenderness, No Pedal Edema Neurologic/Psychiatric: Alert, Oriented x3, No Motor/Sensory Deficits, Normal Mood/Affect Skin: Normal Color, Warm/Dry Lymphatic: No Adenopathy Results Results/Procedures Labs Laboratory Tests 01/15/22 15:33 01/16/22 04:39 Patient resulted labs reviewed. Short Stay Diagnosis Discharge Diagnosis-Short Stay Admission Diagnosis Status asthmaticus Final Discharge Diagnosis Status asthmaticus Conclusion Plan Remain in ICU High risk for intubation Diagnosis/Problems Diagnosis/Problems (1) Status asthmaticus HEIDY BEATTY DO Jan 16, 2022 07:11
[2022-01-16] MEDS: LORATADINE (CLARITIN) 10 MG TAB PO SCH (08:11)
[2022-01-16] MEDS: SENNOSIDES 8.6 MG (SENOKOT) TAB PO SCH ×2 (08:11→20:27)
[2022-01-16] MEDS: DOCUSATE SODIUM 100 MG (COLACE) CAP PO SCH ×2 (08:11→20:27)
--- NOTE | 2022-01-16 08:12 | Diagnostic Imaging Report ---
EXAMINATION: Chest, 1 view. HISTORY: Dyspnea. COMPARISON: 01/15/2022. FINDINGS: The lung volumes are normal. No focal consolidation is seen. The lung bases are clear. No large pleural effusion or pneumothorax is seen. The cardiomediastinal silhouette is normal in size and contour. No acute osseous abnormality is seen. IMPRESSION: Improved aeration in the lung bases which may represent improved atelectasis. No focal consolidations or pleural effusions. Dictated by: Dictated on workstation # [id number]
--- NOTE | 2022-01-16 08:59 | Tele-ICU Progress Note ---
Progress Note video ounds completed 31 y/o female admitted with acute exacerbation of asthma Treated with nebs and steroids Now improved PE: resting comfortably all VSS The lung volumes are normal. No focal consolidation is seen. The lung bases are clear. No large pleural effusion or pneumothorax is seen. The cardiomediastinal silhouette is normal in size and contour. No acute osseous abnormality is seen. IMPRESSION: Improved aeration in the lung bases which may represent improved atelectasis. No focal consolidations or pleural effusions. Dictated by: Focused Exam Lactate Level 01/15/22 18:25: Lactic Acid Level 1.61 Height, Weight, BMI Height: '" Weight: lbs. oz. kg; 30.07 BMI Method: Laboratory Tests 01/15/22 15:33 01/16/22 04:39 Labs Laboratory Tests 01/15/22 15:33 01/16/22 04:39 Results Results/Procedures Lab Laboratory Tests 01/15/22 15:33 01/16/22 04:39 Results Results/Procedures Lab Laboratory Tests 01/15/22 15:33 01/16/22 04:39 Results Labs Labs Laboratory Tests 01/15/22 15:33: White Blood Count 10.5, Red Blood Count 4.59, Hemoglobin 11.3L, Hematocrit 36, Mean Corpuscular Volume 78L, Mean Corpuscular Hemoglobin 25, Mean Corpuscular Hemoglobin Concent 32, Red Cell Distribution Width 16.3H, Platelet Count 269, Mean Platelet Volume 10.4, Immature Granulocyte % (Auto) 0, Neutrophils (%) (Auto) 70, Lymphocytes (%) (Auto) 17, Monocytes (%) (Auto) 9, Eosinophils (%) (Auto) 3, Basophils (%) (Auto) 0, Neutrophils # (Auto) 7.3, Lymphocytes # (Auto) 1.8, Monocytes # (Auto) 1.0, Eosinophils # (Auto) 0.4H, Basophils # (Auto) 0.0, Immature Granulocyte # (Auto) 0.0, Sodium Level 143, Potassium Level 3.4L, Chloride Level 107, Carbon Dioxide Level 21, Anion Gap 15H, Blood Urea Nitrogen 12, Creatinine 0.92, Estimat Glomerular Filtration Rate 86, BUN/Creatinine Ratio 13, Glucose Level 93, Calcium Level 9.5, Corrected Calcium 9.1, Total Bilirubin 0.5, Aspartate Amino Transf (AST/SGOT) 25, Alanine Aminotransferase (ALT/SGPT) 17, Alkaline Phosphatase 52, Total Protein 7.3, Albumin 4.5, Procalcitonin 0.04, Serum Test, Qualitative NEGATIVE 01/15/22 18:25: Lactic Acid Level 1.61, Influenza Type A (RT-PCR) Not Detected, Influenza Type B (RT-PCR) Not Detected, SARS-CoV-2 RNA (RT-PCR) Not Detected 01/15/22 18:30: Blood Gas Puncture Site LEFT RADIAL, Blood Gas Patient Temperature 36.7, Arterial Blood pH 7.42, Arterial Blood Partial Pressure CO2 36, Arterial Blood Partial Pressure O2 54L, Arterial Blood HCO3 23, Arterial Blood Total CO2 24.1, Arterial Blood Oxygen Saturation 91L, Arterial Blood Base Excess -1.0, Nic Test YES-POS, Blood Gas Ventilator Setting NO, Blood Gas Inspired Oxygen 2 01/16/22 04:39: White Blood Count 7.6, Red Blood Count 4.56, Hemoglobin 11.3L, Hematocrit 36, Mean Corpuscular Volume 78L, Mean Corpuscular Hemoglobin 25, Mean Corpuscular Hemoglobin Concent 32, Red Cell Distribution Width 16.1H, Platelet Count 261, Mean Platelet Volume 11.3, Immature Granulocyte % (Auto) 0, Neutrophils (%) (Auto) 85H, Lymphocytes (%) (Auto) 11L, Monocytes (%) (Auto) 4, Eosinophils (%) (Auto) 0, Basophils (%) (Auto) 0, Neutrophils # (Auto) 6.4, Lymphocytes # (Auto) 0.9L, Monocytes # (Auto) 0.3, Eosinophils # (Auto) 0.0, Basophils # (Auto) 0.0, Immature Granulocyte # (Auto) 0.0, Sodium Level 141, Potassium Level 4.1, Chloride Level 107, Carbon Dioxide Level 19L, Anion Gap 15H, Blood Urea Nitrogen 11, Creatinine 0.78, Estimat Glomerular Filtration Rate 105, BUN/Creatinine Ratio 14, Glucose Level 124H, Calcium Level 9.8, Corrected Calcium 9.5, Total Bilirubin 0.3, Aspartate Amino Transf (AST/SGOT) 22, Alanine Aminotransferase (ALT/SGPT) 17, Alkaline Phosphatase 55, Total Protein 7.3, Albumin 4.4, Phosphorus Level 3.9, Magnesium Level 1.8 Results Labs Labs Laboratory Tests 01/15/22 15:33: White Blood Count 10.5, Red Blood Count 4.59, Hemoglobin 11.3L, Hematocrit 36, Mean Corpuscular Volume 78L, Mean Corpuscular Hemoglobin 25, Mean Corpuscular Hemoglobin Concent 32, Red Cell Distribution Width 16.3H, Platelet Count 269, Mean Platelet Volume 10.4, Immature Granulocyte % (Auto) 0, Neutrophils (%) (Auto) 70, Lymphocytes (%) (Auto) 17, Monocytes (%) (Auto) 9, Eosinophils (%) (Auto) 3, Basophils (%) (Auto) 0, Neutrophils # (Auto) 7.3, Lymphocytes # (Auto) 1.8, Monocytes # (Auto) 1.0, Eosinophils # (Auto) 0.4H, Basophils # (Auto) 0.0, Immature Granulocyte # (Auto) 0.0, Sodium Level 143, Potassium Level 3.4L, Chloride Level 107, Carbon Dioxide Level 21, Anion Gap 15H, Blood Urea Nitrogen 12, Creatinine 0.92, Estimat Glomerular Filtration Rate 86, BUN/Creatinine Ratio 13, Glucose Level 93, Calcium Level 9.5, Corrected Calcium 9.1, Total Bilirubin 0.5, Aspartate Amino Transf (AST/SGOT) 25, Alanine Aminotransferase (ALT/SGPT) 17, Alkaline Phosphatase 52, Total Protein 7.3, Albumin 4.5, Procalcitonin 0.04, Serum Test, Qualitative NEGATIVE 01/15/22 18:25: Lactic Acid Level 1.61, Influenza Type A (RT-PCR) Not Detected, Influenza Type B (RT-PCR) Not Detected, SARS-CoV-2 RNA (RT-PCR) Not Detected 01/15/22 18:30: Blood Gas Puncture Site LEFT RADIAL, Blood Gas Patient Temperature 36.7, Arterial Blood pH 7.42, Arterial Blood Partial Pressure CO2 36, Arterial Blood Partial Pressure O2 54L, Arterial Blood HCO3 23, Arterial Blood Total CO2 24.1, Arterial Blood Oxygen Saturation 91L, Arterial Blood Base Excess -1.0, Nic Test YES-POS, Blood Gas Ventilator Setting NO, Blood Gas Inspired Oxygen 2 01/16/22 04:39: White Blood Count 7.6, Red Blood Count 4.56, Hemoglobin 11.3L, Hematocrit 36, Mean Corpuscular Volume 78L, Mean Corpuscular Hemoglobin 25, Mean Corpuscular Hemoglobin Concent 32, Red Cell Distribution Width 16.1H, Platelet Count 261, Mean Platelet Volume 11.3, Immature Granulocyte % (Auto) 0, Neutrophils (%) (Auto) 85H, Lymphocytes (%) (Auto) 11L, Monocytes (%) (Auto) 4, Eosinophils (%) (Auto) 0, Basophils (%) (Auto) 0, Neutrophils # (Auto) 6.4, Lymphocytes # (Auto) 0.9L, Monocytes # (Auto) 0.3, Eosinophils # (Auto) 0.0, Basophils # (Auto) 0.0, Immature Granulocyte # (Auto) 0.0, Sodium Level 141, Potassium Level 4.1, Chloride Level 107, Carbon Dioxide Level 19L, Anion Gap 15H, Blood Urea Nitrogen 11, Creatinine 0.78, Estimat Glomerular Filtration Rate 105, BUN/Creatinine Ratio 14, Glucose Level 124H, Calcium Level 9.8, Corrected Calcium 9.5, Total Bilirubin 0.3, Aspartate Amino Transf (AST/SGOT) 22, Alanine Aminotransferase (ALT/SGPT) 17, Alkaline Phosphatase 55, Total Protein 7.3, Albumin 4.4, Phosphorus Level 3.9, Magnesium Level 1.8 CIPRIANO WHEATLEY MD Jan 16, 2022 08:59
[2022-01-16] MEDS: BENZONATATE 100 MG (TESSALON) CAPSULE PO SCH ×3 (11:57→20:27)
[2022-01-16] MEDS: guaiFENesin/CODEINE (ROBITUSSIN AC) 10ML UDC PO SCH ×4 (11:57→22:57)
[2022-01-16 12:37] LABS: ABG BASE EXCESS -0.1 MMOL/L (-2.5-2.5); ABG PCO2 49 MMHG (35-45); ABG TCO2 26.4 MMOL/L (21.0-31.0)
[2022-01-16 12:40] LABS: ALLENS TEST YES-POS; INSPIRED O2 2L; PATIENT TEMP 37.4; VENTILATOR NO
[2022-01-16 12:44] LABS: ABG PH 7.33 (7.37-7.43); ABG PO2 35 MMHG (79-93)
[2022-01-16 12:45] LABS: ABG OXYGEN SATURATION 54 % (94-100)
[2022-01-16] MEDS: RT--FLUTICASONE/SALMETEROL 113-14 (AIRDUO RespiCLICK) IH SCH ×2 (14:50→22:41)
[2022-01-16] MEDS: MONTELUKAST 10 MG (SINGULAIR) TAB PO SCH (20:27)
[2022-01-16] MEDS: ENOXAPARIN 40 MG/0.4 ML (LOVENOX) SYR SC SCH (20:28)
[2022-01-17] MEDS: RT-ALBUTEROL SULF 2.5 MG/3 ML PRE-MIX VIAL INH SCH ×6 (02:32→22:07)
[2022-01-17] MEDS: guaiFENesin/CODEINE (ROBITUSSIN AC) 10ML UDC PO SCH ×6 (02:36→23:25)
[2022-01-17 04:27] LABS: ABG BASE EXCESS -0.1 MMOL/L (-2.5-2.5); ABG OXYGEN SATURATION 94 % (94-100); ABG PCO2 42 MMHG (35-45); ABG PH 7.39 (7.37-7.43); ABG PO2 67 MMHG (79-93); ABG TCO2 25.7 MMOL/L (21.0-31.0)
[2022-01-17 04:29] LABS: BASOPHILS % (AUTO) 0 % (0-10); EOSINOPHILS % (AUTO) 0 % (0-10); HEMATOCRIT 37 % (35-52); HEMOGLOBIN 11.5 g/dL (11.5-16.0); LYMPHOCYTES # (AUTO) 0.9 10^3/uL (1.0-4.0); LYMPHOCYTES % (AUTO) 9 % (12-44); MEAN CORPUSCULAR HEMOGLOBIN 25 pg (25-34); MEAN CORPUSCULAR HGB CONC 32 g/dL (32-36); MEAN CORPUSCULAR VOLUME 78 fL (80-99); MONOCYTES # (AUTO) 0.3 10^3/uL (0.0-1.0); MONOCYTES % (AUTO) 3 % (0-12); NEUTROPHILS # (AUTO) 9.4 10^3/uL (1.8-7.8); NEUTROPHILS % (AUTO) 88 % (42-75); PLATELET COUNT 259 10^3/uL (130-400); WHITE BLOOD COUNT 10.8 10^3/uL (4.3-11.0)
[2022-01-17 04:29] LABS: ALLENS TEST YES-POS; INSPIRED O2 2L NC; PATIENT TEMP 36.7; VENTILATOR NO
[2022-01-17 04:49] LABS: ALBUMIN 4.3 GM/DL (3.2-4.5); BILIRUBIN,TOTAL 0.2 MG/DL (0.1-1.0); CALCIUM 9.7 MG/DL (8.5-10.1); CREATININE SERUM 0.84 MG/DL (0.60-1.30); MAGNESIUM 1.8 MG/DL (1.6-2.4); PHOSPHORUS 3.7 MG/DL (2.3-4.7); TOTAL PROTEIN 7.3 GM/DL (6.4-8.2)
[2022-01-17] MEDS: POTASSIUM CL 10MEQ/50ML IVPB 50 ML IV SCH (04:51)
[2022-01-17] MEDS: KCL 20 MEQ TAB (K-DUR) PO SCH (04:51)
[2022-01-17] MEDS: MAGNESIUM 1 GM/100 ML IVPB 100 ML IV SCH (04:51)
[2022-01-17 05:01] LABS: ANISOCYTOSIS SLIGHT; HYPOCHROMASIA SLIGHT; LYMPHOCYTES % (MANUAL) 6 %; MICROCYTOSIS SLIGHT; MONOCYTES % (MANUAL) 2 %; NEUTROPHILS % (MANUAL) 92 %; POIKILOCYTOSIS SLIGHT
[2022-01-17] MEDS: methylPREDNISolone 40 MG/ML (Solu-MEDROL) VIAL IV SCH ×4 (06:00→23:25)
[2022-01-17] MEDS: PANTOPRAZOLE 40 MG (PROTONIX) TAB PO SCH (06:00)
--- NOTE | 2022-01-17 07:06 | Progress Note - Hospitalist ---
Subjective HPI/CC On Admission Date Seen by Provider: Jan 17, 2022 Time Seen by Provider: 11:00 CC: Status asthmaticus HPI: This is a 31yoF of [facility] who has a h/o asthma but never was intubated with most recent exacerbation was in 2019 with COVID who presented to the ER in status asthmaticus after failing outpatient therapy. IV steroids initiated and patient was admitted to ICU due to critically low O2 levels with high risk for intubation. She continues to have very coarse breath sounds and cough and tachycardia and dyspnea so she will remain in ICU due to severity of her exacerbation. Anti-tussives will be initiated along with ICS and Singulair and Claritin. Subjective/Events-last exam Doing the same Coughing spells are profound Coarseness and wheezing noted No pain Remains in ICU High risk for intubation Review of Systems General: Fatigue, Malaise Pulmonary: Dyspnea, Cough Focused Exam Lactate Level 01/15/22 18:25: Lactic Acid Level 1.61 Objective Exam Vital Signs Vital Signs Date Time Temp Pulse Resp B/P (MAP) Pulse Ox O2 Delivery O2 Flow Rate FiO2 01/17/22 20:09 Room Air 01/17/22 20:00 37.2 01/17/22 19:00 131 01/17/22 18:15 94 01/17/22 18:00 26 2.00 Capillary Refill : Less Than 3 Seconds General Appearance: No Apparent Distress, WD/WN, Chronically ill Respiratory: Accessory Muscle Use, Crackles, Decreased Breath Sounds, Wheezing Cardiovascular: Regular Rate, Rhythm Neurologic/Psychiatric: Alert, Oriented x3, No Motor/Sensory Deficits, Normal Mood/Affect Results/Procedures Lab Laboratory Tests 01/17/22 04:05 Patient resulted labs reviewed. Assessment/Plan Assessment and Plan Assess & Plan/Chief Complaint Remain in ICU High risk for intubation Diagnosis/Problems Diagnosis/Problems (1) Status asthmaticus DORADORIS COLLINS Jan 17, 2022 07:06
--- NOTE | 2022-01-17 07:26 | Diagnostic Imaging Report ---
INDICATION: 31-year-old female, hospitalized patient with dyspnea. TECHNIQUE: Single view chest 6:05 AM. CORRELATION STUDY: 01/16/2022 FINDINGS: The heart size, mediastinal configuration and pulmonary vascularity are within normal limits. The lungs are relatively clear at follow-up. There is no significant effusion or pneumothorax. IMPRESSION: 1. Negative appearing single view chest. Dictated by: Dictated on workstation # [id number]
[2022-01-17] MEDS: LORATADINE (CLARITIN) 10 MG TAB PO SCH (08:57)
[2022-01-17] MEDS: DOCUSATE SODIUM 100 MG (COLACE) CAP PO SCH ×2 (08:57→19:36)
[2022-01-17] MEDS: SENNOSIDES 8.6 MG (SENOKOT) TAB PO SCH ×2 (08:57→19:37)
[2022-01-17] MEDS: BENZONATATE 100 MG (TESSALON) CAPSULE PO SCH ×3 (08:57→19:35)
--- NOTE | 2022-01-17 09:38 | Tele-ICU Progress Note ---
Subjective Date Seen by a Provider: Jan 17, 2022 Time Seen by a Provider: 08:00 Subjective/Events-last exam This virtual visit was conducted using real time audio/video. Thank you for asking us to see this patient for respiratory insufficiency due to AE asthma. Recent events: none. PE: Appears comfortable on camera. VSS. O2 sat 93% on 3 LPM. HEENT: No obvious masses, adenopathy or JVD. Chest: still wheezing. CV: RRR S1 S2 No murmur or added sounds. Abd: Non-tender. Bowel sounds Y. : Unremarkable. Jackson N. [employer]/psychiatric: Grossly intact. No obvious focal findings. Extremities: No edema. Capillary refill < 3 seconds. Skin: unremarkable. Results: Elevated BG 146. B.39/42/67 on 2 LPM. CXR: Clear but hyp erinflated. Available chart/ vitals / labs / images reviewed. Video assessment done using teleICU camera, rest of exam as per RN. A/P: Respiratory insufficiency: Continue present management with airduo, O2, Albut., Medrol, Singulair, Claritin, Perles, Robitussin Monitor for increasing oxygenation needs and/or need for intubation. Critical Care: critically ill patient. Cont. Mackenzie., PPI. Discussed with RN Sidra. Asked RN to reach out to eICU if any questions or concerns later. Time spent with patient/coordination of care with other health professionals (mins): 25 Sepsis Event Evaluation Height, Weight, BMI Height: '" Weight: lbs. oz. kg; 30.07 BMI Method: Focused Exam Lactate Level 01/15/22 18:25: Lactic Acid Level 1.61 Exam Exam Patient acknowledged, consented, and participated in this virtual visit which was conducted using real time audio/video Vital Signs Date Time Temp Pulse Resp B/P (MAP) Pulse Ox O2 Delivery O2 Flow Rate FiO2 01/17/22 09:00 102 18 132/79 93 Nasal Cannula 2.00 01/17/22 08:00 92 13 133/94 97 Nasal Cannula 2.00 01/17/22 08:00 94 Room Air 01/17/22 07:40 36.4 85 18 135/100 96 Nasal Cannula 2.00 01/17/22 07:03 94 Nasal Cannula 2.00 01/17/22 07:00 104 01/17/22 06:00 94 23 138/77 94 Nasal Cannula 2.00 01/17/22 05:00 83 14 126/82 96 Nasal Cannula 2.00 01/17/22 04:00 36.7 01/17/22 04:00 81 23 122/79 95 Nasal Cannula 2.00 01/17/22 03:58 96 Nasal Cannula 2.00 01/17/22 03:00 90 25 134/98 95 Nasal Cannula 2.00 01/17/22 02:32 95 Nasal Cannula 2.00 01/17/22 02:00 86 22 109/82 91 Nasal Cannula 2.00 01/17/22 01:00 94 01/17/22 01:00 92 20 111/73 90 Nasal Cannula 2.00 01/17/22 00:00 96 Nasal Cannula 2.00 01/17/22 00:00 81 14 128/70 94 Nasal Cannula 2.00 01/16/22 23:00 99 11 118/71 95 Nasal Cannula 2.00 01/16/22 22:00 94 20 106/68 96 Nasal Cannula 2.00 01/16/22 21:00 100 20 118/75 95 Nasal Cannula 2.00 01/16/22 20:00 97 Nasal Cannula 2.00 01/16/22 20:00 111 26 117/66 94 Nasal Cannula 2.00 01/16/22 19:00 121 14 139/92 92 Nasal Cannula 2.00 01/16/22 19:00 113 01/16/22 18:31 95 Nasal Cannula 3.00 01/16/22 18:00 112 18 145/87 95 Nasal Cannula 2.00 01/16/22 17:00 106 24 137/79 93 Nasal Cannula 2.00 01/16/22 16:00 96 Nasal Cannula 2.00 01/16/22 16:00 37.5 Nasal Cannula 2.00 01/16/22 16:00 101 20 125/78 94 Nasal Cannula 2.00 01/16/22 15:00 117 26 122/67 94 Nasal Cannula 2.00 01/16/22 14:51 94 Nasal Cannula 3.00 01/16/22 14:00 96 18 131/89 95 Nasal Cannula 2.00 01/16/22 13:00 97 21 94 Nasal Cannula 2.00 01/16/22 12:48 113 01/16/22 12:00 95 Nasal Cannula 2.00 01/16/22 12:00 108 10 93 Nasal Cannula 2.00 01/16/22 12:00 37.4 Nasal Cannula 2.00 01/16/22 11:00 116 21 141/94 95 Nasal Cannula 2.00 01/16/22 10:50 97 Nasal Cannula 3.00 01/16/22 10:00 103 18 119/68 90 Nasal Cannula 2.00 I & O 01/17/22 07:00 Intake Total 3170 ml Output Total 350 ml Balance 2820 ml Height & Weight Height: '" Weight: lbs. oz. kg; 30.07 BMI Method: General Appearance: WD/WN, Anxious, Mild Distress HEENT: PERRL/EOMI, Normal ENT Inspection, Pharynx Normal Neck: Full Range of Motion, Normal Inspection, Non Tender, Supple, Carotid Bruit Respiratory: No Respiratory Distress, Accessory Muscle Use, Crackles, Decreased Breath Sounds, Rales, Wheezing Cardiovascular: No Edema, No Gallop, No JVD, No Murmur, Normal Peripheral Pulses, Tachycardia Capillary Refill: Less Than 3 Seconds Gastrointestinal: normal bowel sounds, non tender, soft, no organomegaly Extremity: Normal Capillary Refill, Normal Inspection, Normal Range of Motion, Non Tender, No Calf Tenderness, No Pedal Edema Neurologic/Psychiatric: Alert, Oriented x3, No Motor/Sensory Deficits, Normal Mood/Affect Skin: Normal Color, Warm/Dry Lymphatic: No Adenopathy Results Lab Laboratory Tests 01/15/22 15:33 01/16/22 04:39 01/17/22 04:05 Assessment/Plan Assessment/Plan See free text. Critical Care: Critically Ill Patient WOLFGANG CHUN MD Jan 17, 2022 09:38
[2022-01-17] MEDS: RT--FLUTICASONE/SALMETEROL 113-14 (AIRDUO RespiCLICK) IH SCH ×2 (10:54→18:15)
[2022-01-17] MEDS: AZITHROMYCIN INJECTION 500 MG in NS (IVPB) 250 ML IV SCH (12:42)
[2022-01-17] MEDS: MONTELUKAST 10 MG (SINGULAIR) TAB PO SCH (19:36)
[2022-01-17] MEDS: ENOXAPARIN 40 MG/0.4 ML (LOVENOX) SYR SC SCH (19:36)
[2022-01-18] MEDS: RT-ALBUTEROL SULF 2.5 MG/3 ML PRE-MIX VIAL INH SCH ×4 (02:38→14:46)
[2022-01-18 04:12] LABS: ABG BASE EXCESS 2.3 MMOL/L (-2.5-2.5); ABG OXYGEN SATURATION 92 % (94-100); ABG PCO2 46 MMHG (35-45); ABG PH 7.38 (7.37-7.43); ABG PO2 66 MMHG (79-93); ABG TCO2 28.3 MMOL/L (21.0-31.0)
[2022-01-18 04:13] LABS: INSPIRED O2 2L; PATIENT TEMP 37.1; VENTILATOR NO
[2022-01-18 04:19] LABS: BASOPHILS % (AUTO) 0 % (0-10); EOSINOPHILS % (AUTO) 0 % (0-10); HEMATOCRIT 35 % (35-52); HEMOGLOBIN 11.1 g/dL (11.5-16.0); LYMPHOCYTES % (AUTO) 9 % (12-44); MEAN CORPUSCULAR HEMOGLOBIN 25 pg (25-34); MEAN CORPUSCULAR HGB CONC 32 g/dL (32-36); MEAN CORPUSCULAR VOLUME 78 fL (80-99); MEAN PLATELET VOLUME 11.2 fL (9.0-12.2); MONOCYTES # (AUTO) 0.4 10^3/uL (0.0-1.0); MONOCYTES % (AUTO) 4 % (0-12); NEUTROPHILS # (AUTO) 9.8 10^3/uL (1.8-7.8); NEUTROPHILS % (AUTO) 87 % (42-75); PLATELET COUNT 263 10^3/uL (130-400); WHITE BLOOD COUNT 11.3 10^3/uL (4.3-11.0)
[2022-01-18 04:31] LABS: ALBUMIN 3.9 GM/DL (3.2-4.5); POTASSIUM 3.7 MMOL/L (3.6-5.0)
[2022-01-18 04:32] LABS: CALCIUM 9.1 MG/DL (8.5-10.1)
[2022-01-18 04:33] LABS: TOTAL PROTEIN 6.6 GM/DL (6.4-8.2)
[2022-01-18 04:35] LABS: BILIRUBIN,TOTAL 0.2 MG/DL (0.1-1.0)
[2022-01-18 04:36] LABS: PHOSPHORUS 3.5 MG/DL (2.3-4.7)
[2022-01-18 04:37] LABS: CREATININE SERUM 0.79 MG/DL (0.60-1.30)
[2022-01-18 04:40] LABS: MAGNESIUM 1.8 MG/DL (1.6-2.4)
[2022-01-18] MEDS: MAGNESIUM 1 GM/100 ML IVPB 100 ML IV SCH (05:06)
[2022-01-18] MEDS: KCL 20 MEQ TAB (K-DUR) PO SCH (05:07)
[2022-01-18] MEDS: POTASSIUM CL 10MEQ/50ML IVPB 50 ML IV SCH (05:07)
[2022-01-18] MEDS: PANTOPRAZOLE 40 MG (PROTONIX) TAB PO SCH (05:11)
[2022-01-18] MEDS: guaiFENesin/CODEINE (ROBITUSSIN AC) 10ML UDC PO SCH ×6 (05:11→23:34)
[2022-01-18] MEDS: methylPREDNISolone 40 MG/ML (Solu-MEDROL) VIAL IV SCH ×4 (05:11→23:34)
[2022-01-18] MEDS: RT--FLUTICASONE/SALMETEROL 113-14 (AIRDUO RespiCLICK) IH SCH ×2 (07:28→20:15)
--- NOTE | 2022-01-18 08:19 | Diagnostic Imaging Report ---
Indication: Dyspnea. Compared: 01/17/2022 Findings: There is no focal pulmonary consolidation, no convincing evidence for edema. Heart size and pulmonary vascularity within normal limits. No effusion or pneumothorax. Impression: Stable chest Dictated by: Dictated on workstation # [id number]
[2022-01-18] MEDS: DOCUSATE SODIUM 100 MG (COLACE) CAP PO SCH ×2 (08:50→20:16)
[2022-01-18] MEDS: LORATADINE (CLARITIN) 10 MG TAB PO SCH (08:50)
[2022-01-18] MEDS: SENNOSIDES 8.6 MG (SENOKOT) TAB PO SCH ×2 (08:50→20:16)
[2022-01-18] MEDS: BENZONATATE 100 MG (TESSALON) CAPSULE PO SCH ×3 (08:50→20:15)
[2022-01-18] MEDS: AZITHROMYCIN INJECTION 500 MG in NS (IVPB) 250 ML IV SCH (08:50)
[2022-01-18] MEDS ORDERED: PSYL1PAC10 PO (09:10)
[2022-01-18] MEDS ORDERED: DOCU100C37 PO (09:10)
[2022-01-18] MEDS ORDERED: ALB0.5V INH (09:10)
[2022-01-18] MEDS ORDERED: METH4TAB10 PO (09:10)
[2022-01-18] MEDS ORDERED: MELO15TA39 PO (09:10)
[2022-01-18] MEDS ORDERED: CYCL5TAB PO (09:10)
[2022-01-18] MEDS ORDERED: FLUT1BLS11 INH (09:10)
[2022-01-18] MEDS ORDERED: ALBU8.5H9 INH (09:10)
[2022-01-18] MEDS ORDERED: HOLD METFORMIN - RECEIVED CONTRAST 20 ML VIAL IV SCH (09:30)
[2022-01-18] MEDS ORDERED: CATHETER FLUSH 10 ML SYR IV PRN (09:30)
[2022-01-18] MEDS ORDERED: IOHEXOL 350 MG/ML 100 ML (OMNIPAQUE 350) VIAL IV ONE (09:30)
[2022-01-18] MEDS ORDERED: NS 100 ML (IVPB) BAG IV ONE (09:30)
[2022-01-18] MEDS ORDERED: KETOROLAC 30 MG/ML VIAL IVP NR (10:00)
--- NOTE | 2022-01-18 11:21 | Diagnostic Imaging Report ---
PROCEDURE: CT chest with contrast only. TECHNIQUE: Multiple contiguous axial images were obtained through the chest after administration of intravenous contrast. Auto Exposure Controls were utilized during the CT exam to meet ALARA standards for radiation dose reduction. INDICATION: Respiratory distress, asthmatic patient, wheezing. No relevant comparison. FINDINGS: Lung volumes are symmetrically hyperexpanded consistent with a component of bilateral air trapping. No consolidation or diego pneumonia was found. There is no pneumothorax or pneumomediastinum. There is no pleural or pericardial effusion. There is no lung mass or thoracic lymphadenopathy. No acute soft tissue or osseous chest wall pathology. Visualized upper abdomen showed no acute finding but likely demonstrates punctate nonobstructing renal calculi. IMPRESSION: 1. Clear hyperexpanded lungs. No pneumothorax, pneumomediastinum, pneumonia or chest effusion. No findings of abscess and no mass or lymphadenopathy. 2. Probable nonobstructing nephrolithiasis however this evaluation is challenged by contrast within the renal collecting systems. Dictated by: Dictated on workstation # [id number]
--- NOTE | 2022-01-18 11:40 | Tele-ICU Progress Note ---
Subjective Date Seen by a Provider: Jan 18, 2022 Time Seen by a Provider: 11:39 Subjective/Events-last exam Tele-ICU Physician , Progress Note ) Available chart/ vitals / labs / Images reviewed Video assessment done using teleICU camera, rest of exam as per RN Discussed with RN Events overnight : Afebrile RA hemodynamically stable, no pressors, I/O = Drips: Consultants: Hospital course: A/P status asthmaticus - on ra - cont nebs and steroids - CT ordered by PCP - will review no obvious pneumonia by CXR. COVID negative -on Z max - follow Lines: (Central Line Necessity Reviewed) Jackson: N/A OG: N/A Nutrition: Per routine Analgesia: N/A VTE Prophylaxis: Lovenox Stress Ulcer Prophylaxis: PPI Plans in collaboration with bedside consultants and IM MDs. Discussed with RN to reach out if any questions or concerns A total of 15 minutes of critical care time was devoted to this patient today, required to treat and/or prevent further deterioration of critical care condition ( as above ) . Sepsis Event Evaluation Height, Weight, BMI Height: '" Weight: lbs. oz. kg; 28.20 BMI Method: Focused Exam Lactate Level 01/15/22 18:25: Lactic Acid Level 1.61 Exam Exam Patient acknowledged, consented, and participated in this virtual visit which was conducted using real time audio/video Vital Signs Date Time Temp Pulse Resp B/P (MAP) Pulse Ox O2 Delivery O2 Flow Rate FiO2 01/18/22 11:00 129 17 151/93 97 Room Air 01/18/22 10:31 96 Nasal Cannula 2.00 01/18/22 10:00 112 15 148/102 93 Room Air 01/18/22 09:00 107 17 167/118 95 Room Air 01/18/22 08:45 Room Air 01/18/22 08:00 37.0 01/18/22 08:00 121 18 133/99 95 Room Air 01/18/22 07:44 Room Air 01/18/22 07:28 93 Room Air 01/18/22 07:00 94 15 161/104 94 Nasal Cannula 2.00 01/18/22 06:29 93 01/18/22 06:00 80 26 123/82 97 Nasal Cannula 2.00 01/18/22 05:00 74 17 136/90 98 Nasal Cannula 2.00 01/18/22 04:00 Room Air 01/18/22 04:00 37.0 01/18/22 04:00 86 31 140/88 93 Nasal Cannula 2.00 01/18/22 03:00 111 26 141/94 89 Nasal Cannula 2.00 01/18/22 02:38 93 Room Air 01/18/22 02:00 89 23 119/89 93 Nasal Cannula 2.00 01/18/22 01:00 93 13 133/81 90 Nasal Cannula 2.00 01/18/22 01:00 92 01/18/22 00:23 Room Air 01/18/22 00:00 86 19 135/85 96 Nasal Cannula 2.00 01/17/22 23:47 37.1 01/17/22 23:00 101 22 119/88 92 Nasal Cannula 2.00 01/17/22 22:25 Nasal Cannula 2.00 01/17/22 22:07 92 Room Air 01/17/22 22:00 97 19 131/81 91 Room Air 01/17/22 21:00 109 25 129/80 94 Room Air 01/17/22 20:09 Room Air 01/17/22 20:00 37.2 Room Air 01/17/22 20:00 101 30 92 Room Air 01/17/22 19:00 108 17 120/101 95 Nasal Cannula 2.00 01/17/22 19:00 131 01/17/22 18:19 Room Air 01/17/22 18:15 94 Room Air 01/17/22 18:00 98 26 91 Nasal Cannula 2.00 01/17/22 17:00 107 15 129/64 96 Nasal Cannula 2.00 01/17/22 16:00 114 21 91 Nasal Cannula 2.00 01/17/22 15:58 96 Nasal Cannula 2.00 01/17/22 15:03 94 Nasal Cannula 2.00 01/17/22 15:00 95 13 125/97 94 Nasal Cannula 2.00 01/17/22 14:00 106 24 99 Nasal Cannula 2.00 01/17/22 13:00 131 18 165/108 98 Nasal Cannula 2.00 01/17/22 12:45 108 01/17/22 12:00 94 Room Air 01/17/22 11:47 36.7 100 20 141/90 96 Nasal Cannula 2.00 I & O 01/18/22 06:59 Intake Total 2260 ml Output Total 2000 ml Balance 260 ml Height & Weight Height: '" Weight: lbs. oz. kg; 28.20 BMI Method: General Appearance: No Apparent Distress, WD/WN, Chronically ill HEENT: PERRL/EOMI, Normal ENT Inspection, Pharynx Normal Neck: Full Range of Motion, Normal Inspection, Non Tender, Supple, Carotid Bruit Respiratory: Accessory Muscle Use, Crackles, Decreased Breath Sounds, Wheezing Cardiovascular: Regular Rate, Rhythm Capillary Refill: Less Than 3 Seconds Gastrointestinal: normal bowel sounds, non tender, soft, no organomegaly Extremity: Normal Capillary Refill, Normal Inspection, Normal Range of Motion, Non Tender, No Calf Tenderness, No Pedal Edema Neurologic/Psychiatric: Alert, Oriented x3, No Motor/Sensory Deficits, Normal Mood/Affect Skin: Normal Color, Warm/Dry Lymphatic: No Adenopathy Results Lab Laboratory Tests 01/17/22 04:05 01/18/22 03:50 Assessment/Plan Assessment/Plan 1 ELI LO MD Jan 18, 2022 11:40
--- NOTE | 2022-01-18 11:59 | Progress Note - Hospitalist ---
WENDYGAY Gunderson MED STUDENT 01/18/22 1159: Subjective HPI/CC On Admission Date Seen by Provider: Jan 18, 2022 Time Seen by Provider: 08:50 CC: Status asthmaticus HPI: This is a 31yoF of [facility] who has a h/o asthma but never was intubated with most recent exacerbation was in 2019 with COVID who presented to the ER in status asthmaticus after failing outpatient therapy. IV steroids initiated and patient was admitted to ICU due to critically low O2 levels with high risk for intubation. She continues to have very coarse breath sounds and cough and tachycardia and dyspnea so she will remain in ICU due to severity of her exacerbation. Anti-tussives will be initiated along with ICS and Singulair and Claritin. Subjective/Events-last exam Pt sitting up in bed this morning. Pt states she feels better for about 20-30 min after breathing treatments and then her cough and SOA return. Pt also r eports she is having to be reminded by nurses to put her oxygen on because her saturation begins to fall. She is not wearing this oxygen at all times, but is on 2L NC when she does. Pt reports she has rib pain from coughing. Review of Systems General: No Chills, No Fatigue HEENT: No Head Aches, No Visual Changes Pulmonary: Dyspnea, Cough Cardiovascular: No: Chest Pain, Palpitations Gastrointestinal: No: Nausea, Vomiting Genitourinary: No Dysuria, No Frequency Musculoskeletal: other (rib pain secondary to coughing) Neurological: No: Weakness, Numbness Focused Exam Lactate Level 01/15/22 18:25: Lactic Acid Level 1.61 Objective Exam Vital Signs Vital Signs Date Time Temp Pulse Resp B/P (MAP) Pulse Ox O2 Delivery O2 Flow Rate FiO2 01/18/22 11:00 129 17 151/93 97 Room Air 01/18/22 10:31 2.00 01/18/22 08:00 37.0 Capillary Refill : Less Than 3 Seconds General Appearance: No Apparent Distress, WD/WN HEENT: PERRL/EOMI, Pharynx Normal Neck: Full Range of Motion, Normal Inspection Respiratory: Chest Non Tender, Crackles, Wheezing Cardiovascular: Regular Rate, Rhythm, No Murmur Gastrointestinal: Normal Bowel Sounds, Non Tender, Soft Back: Normal Inspection, No CVA Tenderness Extremity: Normal Capillary Refill, Non Tender Neurologic/Psychiatric: Alert, Oriented x3 Skin: Normal Color, Warm/Dry Lymphatic: No Adenopathy Results/Procedures Lab Laboratory Tests 01/18/22 03:50 Patient resulted labs reviewed. Assessment/Plan Assessment and Plan Assess & Plan/Chief Complaint Status asthmaticus Pleurisy Status asthmaticus -Azithromycin -Duoneb, Singulair and claritin -Methylprednisolone likely cause of leukocytosis -ABG -CT chest: IMPRESSION: 1. Clear hyperexpanded lungs. No pneumothorax, pneumomediastinum, pneumonia or chest effusion. No findings of abscess and no mass or lymphadenopathy. 2. Probable nonobstructing nephrolithiasis however this evaluation is challenged by contrast within the renal collecting systems. -D-dimer within normal limits and CT showing no evidence of PE Pleurisy -Toradol for pain from coughing Hyperglycemia -Likely caused by methylprednisolone Anemia -Likely dilutional Diet: Regular DVT prophylaxis: SCDs and ambulation Disposition: Likely to stay at least another day in ICU, pt is at high risk for intubation. Recovery is likely to be a slow process. Will d/c when medically stable. HEIDY JOHN DO 01/19/22 0536: Subjective Subjective/Events-last exam Pt is still very coarse Has never had a CT scan of her chest ABG is 7. D-Dimer is normal Toradol will be given for the pleurisy from coughing so much Review of Systems Pulmonary: Dyspnea, Cough Objective Exam General Appearance: No Apparent Distress, WD/WN Respiratory: No Respiratory Distress, Accessory Muscle Use, Crackles, Rales, Wheezing Assessment/Plan Assessment and Plan Assess & Plan/Chief Complaint CT scan Still high risk for intubation Supervisory-Addendum Brief Verification & Attestation Participated in pt care: history, MDM, physical Personally performed: exam, history, MDM, supervision of care Care discussed with: Medical Student Procedures: n/a Results interpretation: Verified all documentation Verification and Attestation of Medical Student E/M Service A medical student performed and documented this service in my presence. I reviewed and verified all information documented by the medical student and made modifications to such information, when appropriate. I personally performed the physical exam and medical decision making. Heidy John, Jan 19, 2022,05:36 GAY NGUYEN MED STUDENT Jan 18, 2022 11:59 HEIDY JOHN DO Jan 19, 2022 05:36
[2022-01-18] MEDS ORDERED: KETOROLAC 30 MG/ML VIAL IVP PRN (15:00)
[2022-01-18] MEDS: RT-ALBUTEROL/IPRATROPIUM 3 ML (DUONEB) VIAL INH SCH ×2 (18:58→21:39)
[2022-01-18] MEDS: ENOXAPARIN 40 MG/0.4 ML (LOVENOX) SYR SC SCH (20:15)
[2022-01-18] MEDS: MONTELUKAST 10 MG (SINGULAIR) TAB PO SCH (20:15)
[2022-01-19] MEDS: RT-ALBUTEROL/IPRATROPIUM 3 ML (DUONEB) VIAL INH SCH ×5 (00:02→21:03)
[2022-01-19] MEDS: guaiFENesin/CODEINE (ROBITUSSIN AC) 10ML UDC PO SCH ×6 (05:32→23:30)
[2022-01-19] MEDS: methylPREDNISolone 40 MG/ML (Solu-MEDROL) VIAL IV SCH ×3 (05:32→17:12)
[2022-01-19 06:37] LABS: BASOPHILS % (AUTO) 0 % (0-10); EOSINOPHILS % (AUTO) 0 % (0-10); HEMATOCRIT 34 % (35-52); HEMOGLOBIN 10.7 g/dL (11.5-16.0); LYMPHOCYTES # (AUTO) 1.5 10^3/uL (1.0-4.0); LYMPHOCYTES % (AUTO) 12 % (12-44); MEAN CORPUSCULAR HEMOGLOBIN 25 pg (25-34); MEAN CORPUSCULAR HGB CONC 31 g/dL (32-36); MEAN CORPUSCULAR VOLUME 78 fL (80-99); MEAN PLATELET VOLUME 11.6 fL (9.0-12.2); MONOCYTES # (AUTO) 0.6 10^3/uL (0.0-1.0); MONOCYTES % (AUTO) 4 % (0-12); NEUTROPHILS # (AUTO) 10.7 10^3/uL (1.8-7.8); NEUTROPHILS % (AUTO) 83 % (42-75); PLATELET COUNT 269 10^3/uL (130-400)
[2022-01-19 06:46] LABS: ALBUMIN 3.6 GM/DL (3.2-4.5); POTASSIUM 3.6 MMOL/L (3.6-5.0)
[2022-01-19 06:47] LABS: CALCIUM 8.8 MG/DL (8.5-10.1)
[2022-01-19 06:50] LABS: BILIRUBIN,TOTAL 0.2 MG/DL (0.1-1.0)
[2022-01-19 06:52] LABS: CREATININE SERUM 0.76 MG/DL (0.60-1.30); PHOSPHORUS 3.5 MG/DL (2.3-4.7)
[2022-01-19 06:55] LABS: MAGNESIUM 1.7 MG/DL (1.6-2.4)
[2022-01-19] MEDS: KCL 20 MEQ TAB (K-DUR) PO SCH ×2 (07:41→07:55)
[2022-01-19] MEDS: MAGNESIUM 1 GM/100 ML IVPB 100 ML IV SCH ×3 (07:41→07:58)
[2022-01-19] MEDS: POTASSIUM CL 10MEQ/50ML IVPB 50 ML IV SCH (07:41)
[2022-01-19] MEDS: DOCUSATE SODIUM 100 MG (COLACE) CAP PO SCH ×3 (07:55→20:14)
[2022-01-19] MEDS: LORATADINE (CLARITIN) 10 MG TAB PO SCH (07:55)
[2022-01-19] MEDS: PANTOPRAZOLE 40 MG (PROTONIX) TAB PO SCH (07:55)
[2022-01-19] MEDS: BENZONATATE 100 MG (TESSALON) CAPSULE PO SCH ×3 (07:56→20:11)
[2022-01-19] MEDS ORDERED: KCL 20 MEQ TAB (K-DUR) PO ONE (08:00)
[2022-01-19] MEDS: SENNOSIDES 8.6 MG (SENOKOT) TAB PO SCH ×2 (08:07→20:14)
[2022-01-19] MEDS: RT--FLUTICASONE/SALMETEROL 113-14 (AIRDUO RespiCLICK) IH SCH ×2 (08:15→21:04)
--- NOTE | 2022-01-19 08:33 | Diagnostic Imaging Report ---
INDICATION: 31-year-old female, dyspnea. TECHNIQUE: Single view chest 5:30 AM. CORRELATION STUDY: 01/18/2022 FINDINGS: The heart size, mediastinal configuration and pulmonary vascularity are within normal limits. The lungs are clear with no consolidating infiltrate. There is no significant effusion or pneumothorax. IMPRESSION: 1. Stable, negative appearing portable chest. Dictated by: Dictated on workstation # [id number]
--- NOTE | 2022-01-19 09:37 | Tele-ICU Progress Note ---
Subjective Date Seen by a Provider: Jan 19, 2022 Time Seen by a Provider: 09:37 Subjective/Events-last exam Tele-ICU Physician , Progress Note ) Available chart/ vitals / labs / Images reviewed Video assessment done using teleICU camera, rest of exam as per RN Discussed with RN Events overnight : Afebrile RA hemodynamically stable, no pressors, I/O = Drips: A/P status asthmaticus- IMPROVED - on ra - cont neb, ICS, and steroids - to taper - CT chest - no PNA COVID negative -on Z max empirically - follow Lines: (Central Line Necessity Reviewed) Jackson: N/A OG: N/A Nutrition: Per routine Analgesia: N/A VTE Prophylaxis: Lovenox Stress Ulcer Prophylaxis: PPI Plans in collaboration with bedside consultants and IM MDs. Discussed with RN to reach out if any questions or concerns A total of 15 minutes of critical care time was devoted to this patient today, required to treat and/or prevent further deterioration of critical care condition ( as above ) . Sepsis Event Evaluation Height, Weight, BMI Height: '" Weight: lbs. oz. kg; 28.28 BMI Method: Exam Exam Patient acknowledged, consented, and participated in this virtual visit which was conducted using real time audio/video Vital Signs Date Time Temp Pulse Resp B/P (MAP) Pulse Ox O2 Delivery O2 Flow Rate FiO2 01/19/22 09:00 104 29 146/87 93 Room Air 01/19/22 08:16 99 Nasal Cannula 1.00 01/19/22 08:00 113 16 169/98 94 Room Air 01/19/22 08:00 Room Air 01/19/22 08:00 36.8 01/19/22 07:07 74 01/19/22 07:00 60 9 149/86 96 Room Air 01/19/22 06:26 68 11 148/108 94 Room Air 01/19/22 05:00 82 13 153/101 92 Room Air 01/19/22 04:00 Room Air 01/19/22 04:00 75 10 140/101 98 Room Air 01/19/22 03:00 82 25 143/97 96 Room Air 01/19/22 02:22 85 155/104 92 Room Air 01/19/22 02:21 98 Nasal Cannula 2.00 01/19/22 02:19 90 01/19/22 01:00 70 153/98 94 Room Air 01/19/22 01:00 70 01/19/22 00:00 104 28 96/78 97 Room Air 01/18/22 23:47 36.8 01/18/22 23:43 Room Air 01/18/22 23:00 86 26 127/79 93 Room Air 01/18/22 22:00 78 32 142/83 94 Room Air 01/18/22 21:00 99 16 134/85 92 Room Air 01/18/22 20:21 36.7 Room Air 01/18/22 20:00 94 23 134/72 91 Room Air 01/18/22 19:42 Room Air 01/18/22 19:00 100 20 127/70 91 Room Air 01/18/22 19:00 100 01/18/22 18:00 93 20 147/87 95 Room Air 01/18/22 17:00 93 22 118/78 96 Room Air 01/18/22 16:00 95 14 143/97 98 Room Air 01/18/22 15:50 Room Air 01/18/22 15:00 104 16 131/71 96 Room Air 01/18/22 14:46 98 Nasal Cannula 2.00 01/18/22 14:00 105 21 130/94 96 Room Air 01/18/22 13:00 117 38 153/93 96 Room Air 01/18/22 12:36 Room Air 01/18/22 12:25 98 01/18/22 12:00 104 24 155/104 97 Room Air 01/18/22 11:00 129 17 151/93 97 Room Air 01/18/22 10:31 96 Nasal Cannula 2.00 01/18/22 10:00 112 15 148/102 93 Room Air I & O 01/19/22 06:59 Intake Total 1900 ml Output Total 700 ml Balance 1200 ml Height & Weight Height: '" Weight: lbs. oz. kg; 28.28 BMI Method: General Appearance: No Apparent Distress, WD/WN HEENT: PERRL/EOMI, Pharynx Normal Neck: Full Range of Motion, Normal Inspection Respiratory: No Respiratory Distress, Accessory Muscle Use, Crackles, Rales, Wheezing Cardiovascular: Regular Rate, Rhythm, No Murmur Capillary Refill: Less Than 3 Seconds Gastrointestinal: normal bowel sounds, non tender, soft, no organomegaly Extremity: Normal Capillary Refill, Non Tender Neurologic/Psychiatric: Alert, Oriented x3 Skin: Normal Color, Warm/Dry Lymphatic: No Adenopathy Results Lab Laboratory Tests 01/18/22 03:50 01/19/22 05:53 Assessment/Plan Assessment/Plan 1 ELI LO MD Jan 19, 2022 09:37
--- NOTE | 2022-01-19 10:28 | Progress Note - Hospitalist ---
GAY NGUYEN MED STUDENT 01/19/22 1028: Subjective HPI/CC On Admission Date Seen by Provider: Jan 19, 2022 Time Seen by Provider: 07:40 CC: Status asthmaticus HPI: This is a 31yoF of [facility] who has a h/o asthma but never was intubated with most recent exacerbation was in 2019 with COVID who presented to the ER in status asthmaticus after failing outpatient therapy. IV steroids initiated and patient was admitted to ICU due to critically low O2 levels with high risk for intubation. She continues to have very coarse breath sounds and cough and tachycardia and dyspnea so she will remain in ICU due to severity of her exacerbation. Anti-tussives will be initiated along with ICS and Singulair and Claritin. Subjective/Events-last exam Pt up in bed talking to nurse this morning. Pt reports she is feeling better today. She still has discouraged disposition as she is away from her 9 mo old baby at this time. She continues to have SOA, cough and rib pain, but this is improving. Toradol has been helping with rib pain. Pt has good appetite and last BM was two days ago. Pt has been ambulating around her room. Review of Systems General: No Chills, No Fatigue HEENT: No Head Aches, No Visual Changes Pulmonary: Dyspnea, Cough Cardiovascular: No: Chest Pain, Palpitations Gastrointestinal: Constipation; No: Nausea, Vomiting Genitourinary: No Dysuria, No Frequency Musculoskeletal: No: neck pain, shoulder pain Neurological: No: Weakness Objective Exam Vital Signs Vital Signs Date Time Temp Pulse Resp B/P (MAP) Pulse Ox O2 Delivery O2 Flow Rate FiO2 01/19/22 09:00 104 29 146/87 93 Room Air 01/19/22 08:16 1.00 01/19/22 08:00 36.8 Capillary Refill : Less Than 3 Seconds General Appearance: No Apparent Distress, WD/WN HEENT: PERRL/EOMI, Pharynx Normal Neck: Full Range of Motion, Normal Inspection Respiratory: Chest Non Tender, No Accessory Muscle Use, No Respiratory Distress, Wheezing (improved from yesterday) Cardiovascular: Regular Rate, Rhythm, No Murmur Gastrointestinal: Normal Bowel Sounds, Non Tender Extremity: Non Tender, No Pedal Edema Neurologic/Psychiatric: Alert, Oriented x3, Depressed Affect Skin: Normal Color, Warm/Dry Lymphatic: No Adenopathy Results/Procedures Lab Laboratory Tests 01/19/22 05:53 Patient resulted labs reviewed. Assessment/Plan Assessment and Plan Assess & Plan/Chief Complaint Status asthmaticus Pleurisy Hyperglycemia Anemia Status asthmaticus -Azithromycin -Duoneb, Singulair and claritin -Methylprednisolone likely cause of leukocytosis -ABG -CT chest from 01/18 IMPRESSION: 1. Clear hyperexpanded lungs. No pneumothorax, pneumomediastinum, pneumonia or chest effusion. No findings of abscess and no mass or lymphadenopathy. 2. Probable nonobstructing nephrolithiasis however this evaluation is challenged by contrast within the renal collecting systems. -D-dimer within normal limits and CT showing no evidence of PE -Ambulate frequently to help regain strength Pleurisy -Toradol for pain from coughing Hyperglycemia -Likely caused by methylprednisolone Anemia -Likely dilutional Diet: Regular DVT prophylaxis: SCDs and ambulation Disposition: Moving to 4th floor today. Pt making steady progress. Will continue to monitor and hopefully d/c within the next few days if medically stable. HEIDY JOHN DO 01/20/22 0605: Supervisory-Addendum Brief Verification & Attestation Participated in pt care: history, MDM, physical Personally performed: exam, history, MDM, supervision of care Care discussed with: Medical Student Procedures: n/a Results interpretation: Verified all documentation Verification and Attestation of Medical Student E/M Service A medical student performed and documented this service in my presence. I reviewed and verified all information documented by the medical student and made modifications to such information, when appropriate. I personally performed the physical exam and medical decision making. Heidy John, Jan 20, 2022,06:05 GAY NGUYEN MED STUDENT Jan 19, 2022 10:28 HEIDY JOHN DO Jan 20, 2022 06:05
[2022-01-19] MEDS ORDERED: MELOXICAM 7.5 MG (MOBIC) TABLET PO PRN (10:30)
[2022-01-19] MEDS ORDERED: RT--FLUTICASONE/SALMETEROL 113-14 (AIRDUO RespiCLICK) IH PRN (10:30)
[2022-01-19] MEDS ORDERED: CYCLOBENZAPRINE 10 MG (FLEXERIL) TAB PO PRN (10:30)
[2022-01-19] MEDS: PSYLLIUM POWDER (METAMUCIL) 5.8 GM PACKET PO SCH (14:13)
[2022-01-19 15:40] VITALS: BP 138/78
[2022-01-19 19:36] VITALS: BP 156/98
[2022-01-19] MEDS: MONTELUKAST 10 MG (SINGULAIR) TAB PO SCH (20:10)
[2022-01-19] MEDS: ENOXAPARIN 40 MG/0.4 ML (LOVENOX) SYR SC SCH (20:10)
[2022-01-19 23:00] VITALS: BP 147/88
[2022-01-20] MEDS: methylPREDNISolone 40 MG/ML (Solu-MEDROL) VIAL IV SCH ×3 (00:04→11:46)
[2022-01-20 03:12] VITALS: BP 139/82
[2022-01-20] MEDS: guaiFENesin/CODEINE (ROBITUSSIN AC) 10ML UDC PO SCH ×3 (03:15→11:46)
[2022-01-20 05:51] LABS: BASOPHILS % (AUTO) 0 % (0-10); EOSINOPHILS % (AUTO) 0 % (0-10); HEMATOCRIT 35 % (35-52); HEMOGLOBIN 10.9 g/dL (11.5-16.0); LYMPHOCYTES # (AUTO) 1.3 10^3/uL (1.0-4.0); LYMPHOCYTES % (AUTO) 12 % (12-44); MEAN CORPUSCULAR HEMOGLOBIN 25 pg (25-34); MEAN CORPUSCULAR HGB CONC 32 g/dL (32-36); MEAN CORPUSCULAR VOLUME 78 fL (80-99); MEAN PLATELET VOLUME 11.1 fL (9.0-12.2); MONOCYTES # (AUTO) 0.5 10^3/uL (0.0-1.0); MONOCYTES % (AUTO) 4 % (0-12); NEUTROPHILS # (AUTO) 9.4 10^3/uL (1.8-7.8); NEUTROPHILS % (AUTO) 83 % (42-75); PLATELET COUNT 278 10^3/uL (130-400); WHITE BLOOD COUNT 11.3 10^3/uL (4.3-11.0)
[2022-01-20] MEDS: PANTOPRAZOLE 40 MG (PROTONIX) TAB PO SCH (05:53)
[2022-01-20 06:12] LABS: ALBUMIN 3.5 GM/DL (3.2-4.5)
[2022-01-20 06:14] LABS: CALCIUM 8.7 MG/DL (8.5-10.1)
[2022-01-20 06:15] LABS: TOTAL PROTEIN 5.9 GM/DL (6.4-8.2)
[2022-01-20 06:17] LABS: BILIRUBIN,TOTAL 0.2 MG/DL (0.1-1.0)
[2022-01-20 06:18] LABS: CREATININE SERUM 0.75 MG/DL (0.60-1.30)
[2022-01-20 06:21] LABS: MAGNESIUM 2.2 MG/DL (1.6-2.4)
[2022-01-20] MEDS: RT-ALBUTEROL/IPRATROPIUM 3 ML (DUONEB) VIAL INH SCH (07:24)
[2022-01-20] MEDS: RT--FLUTICASONE/SALMETEROL 113-14 (AIRDUO RespiCLICK) IH SCH (07:25)
[2022-01-20] MEDS: DOCUSATE SODIUM 100 MG (COLACE) CAP PO SCH ×2 (07:33→08:58)
[2022-01-20 08:06] VITALS: BP 153/99
[2022-01-20] MEDS: SENNOSIDES 8.6 MG (SENOKOT) TAB PO SCH (08:57)
[2022-01-20] MEDS: BENZONATATE 100 MG (TESSALON) CAPSULE PO SCH (08:57)
[2022-01-20] MEDS: LORATADINE (CLARITIN) 10 MG TAB PO SCH (08:57)
[2022-01-20] MEDS: PSYLLIUM POWDER (METAMUCIL) 5.8 GM PACKET PO SCH (08:57)
[2022-01-20] MEDS ORDERED: AZITHROMYCIN 250 MG TAB (ZITHROMAX) PO SCH (09:00)
[2022-01-20] MEDS ORDERED: MONT-40 PO (11:02)
[2022-01-20] MEDS ORDERED: LORA10TA7 PO (11:02)
[2022-01-20] MEDS ORDERED: IPRA3AMP31 INH (11:02)
[2022-01-20] MEDS ORDERED: PRED10TA22 PO (11:02)
[2022-01-20] MEDS ORDERED: ALBU8.5H9 INH (11:02)
--- NOTE | 2022-01-20 11:02 | Discharge Summary ---
Discharge Summary Hospital Course Was the Problem List Reviewed?: Yes Problems/Dx: (1) Status asthmaticus Qualifiers: Qualified Codes: J45.902 - Unspecified asthma with status asthmaticus Hospital Course Date of Admission: Jan 15, 2022 at 19:14 Admission Diagnosis : Family Physician/Provider: Anita Marion Date of Discharge: 01/20/22 Discharge Diagnosis: [ ] Hospital Course: Mago is a 31 yo female admitted to ICU on 01/15 for SOA, wheezing and chest pain. Pt has hx of asthma, last exacerbation was in 2019. Pt was found to be having an asthma attack with saturations in the 80s. She was given duoneb treatment and seemed to improve. Upon admission to ICU pt was started on azithromycin, duonebs, singulair, loratidine, methylprednisolone and toradol. At this point pt was requiring 2L NC with adequate saturations. Pt was at high risk for intubation as status asthmaticus put her in very fragile state. Pt stayed in ICU until 01/19 and continued to show improvement. Chest xrays remained stable only showing some bibasilar atelectasis. Pt was requiring no supplemental oxygen at this point, so she was moved to general medical floor. She was found to have hypokalemia, so potassium was started. On 01/20 pt was medically stable for discharge and feeling eager to get home. Pt discharged with Rx sent [facility] for prednisone taper, albuterol inhaler, duoneb treatment and singulair. F/u with PCP in 1 week. GAY NGUYEN A MED STUDENT Labs and Pending Lab Test: Laboratory Tests 01/20/22 05:28: White Blood Count 11.3H, Red Blood Count 4.44, Hemoglobin 10.9L, Hematocrit 35, Mean Corpuscular Volume 78L, Mean Corpuscular Hemoglobin 25, Mean Corpuscular Hemoglobin Concent 32, Red Cell Distribution Width 15.6H, Platelet Count 278, Mean Platelet Volume 11.1, Immature Granulocyte % (Auto) 2, Neutrophils (%) (Auto) 83H, Lymphocytes (%) (Auto) 12, Monocytes (%) (Auto) 4, Eosinophils (%) (Auto) 0, Basophils (%) (Auto) 0, Neutrophils # (Auto) 9.4H, Lymphocytes # (Auto) 1.3, Monocytes # (Auto) 0.5, Eosinophils # (Auto) 0.0, Basophils # (Auto) 0.0, Immature Granulocyte # (Auto) 0.2H, Sodium Level 140, Potassium Level 4.0, Chloride Level 104, Carbon Dioxide Level 26, Anion Gap 10, Blood Urea Nitrogen 13, Creatinine 0.75, Estimat Glomerular Filtration Rate 110, BUN/Creatinine Ratio 17, Glucose Level 143H, Calcium Level 8.7, Corrected Calcium 9.1, Magnesium Level 2.2, Total Bilirubin 0.2, Aspartate Amino Transf (AST/SGOT) 12, Alanine Aminotransferase (ALT/SGPT) 25, Alkaline Phosphatase 38L, Total Protein 5.9L, Albumin 3.5 Microbiology 01/15/22 MRSA Screen - Final, Complete MRSA not isolated Home Meds Active Reported Albuterol Sulfate 2.5 Mg/0.5 Ml Vial.neb 2.5 Mg INH Q4H PRN Metamucil Packet (Psyllium Husk (with Sugar)) 3.4 Gram Powd.pack 3.4 Gm PO DAILY Fluticasone-Salmeterol 100-50 (Fluticasone Propion/Salmeterol) 100 Mcg-50 Mcg/Dose Blst.w.dev 2 Puff INH Q12H PRN Proair Hfa (Albuterol Sulfate) 90 Mcg Hfa.aer.ad 2 Puff INH Q6H PRN Cyclobenzaprine HCl 5 Mg Tablet 5 Mg PO BID PRN Meloxicam 15 Mg Tablet 15 Mg PO DAILY PRN Docusate Sodium 100 Mg Capsule 100 Mg PO BID Methylprednisolone Dose Pack (Methylprednisolone) 4 Mg Tab.ds.pk Mg PO UD 6 Days PER DOSE PACK INSTRUCTIONS FILLED 01-13-2022 #21/ DAY SUPPLY Assessment/Pt Instructions PCP 1 week Discharge Planning: <30 minutes discharge planning Discharge Instructions Discharge Diet: No Restrictions Discharge Physical Examination Vital Signs Vital Signs Date Time Temp Pulse Resp B/P (MAP) Pulse Ox O2 Delivery O2 Flow Rate FiO2 01/20/22 09:54 Room Air 01/20/22 08:06 35.9 77 18 153/99 (117) 96 01/19/22 21:05 1.00 General Appearance: No Apparent Distress, WD/WN, Chronically ill Respiratory: Lungs Clear, No Accessory Muscle Use Cardiovascular: Regular Rate, Rhythm Allergies: Coded Allergies: No Known Drug Allergies (Unverified , 04/01/21) Discharge Summary Date of Admission Jan 15, 2022 at 19:14 Date of Discharge Discharge Date: Jan 20, 2022 Admission Diagnosis Status asthmaticus Discharge Diagnosis CT scan Still high risk for intubation (1) Status asthmaticus Qualifiers: Qualified Codes: J45.902 - Unspecified asthma with status asthmaticus DORIS JOHN DO Jan 20, 2022 11:02
--- NOTE | 2022-01-20 11:37 | Progress Note ---
GAY NGUYEN MED STUDENT 01/20/22 1137: Progress Note Mago is a 31 yo female admitted to ICU on 01/15 for SOA, wheezing and chest pain. Pt has hx of asthma, last exacerbation was in 2019. Pt was found to be having an asthma attack with saturations in the 80s. She was given duoneb treatment and seemed to improve. Upon admission to ICU pt was started on azithromycin, duonebs, singulair, loratidine, methylprednisolone and toradol. At this point pt was requiring 2L NC with adequate saturations. Pt was at high risk for intubation as status asthmaticus put her in very fragile state. Pt stayed in ICU until 01/19 and continued to show improvement. Chest xrays remained stable only showing some bibasilar atelectasis. Pt was requiring no supplemental oxygen at this point, so she was moved to general medical floor. She was found to have hypokalemia, so potassium was started. On 01/20 pt was medically stable for discharge and feeling eager to get home. Pt discharged with Rx sent [facility] for prednisone taper, albuterol inhaler, duoneb treatment and singulair. F/u with PCP in 1 week. HEIDY JOHN DO 01/21/22 0535: Supervisory-Addendum Brief Verification & Attestation Participated in pt care: history, MDM, physical Personally performed: exam, history, MDM, supervision of care Care discussed with: Medical Student Procedures: n/a Results interpretation: Verified all documentation Verification and Attestation of Medical Student E/M Service A medical student performed and documented this service in my presence. I reviewed and verified all information documented by the medical student and made modifications to such information, when appropriate. I personally performed the physical exam and medical decision making. Heidy John, Jan 21, 2022,05:35 GAY NGUYEN MED STUDENT Jan 20, 2022 11:37 HEIDY JOHN DO Jan 21, 2022 05:35
[2022-01-20 12:02] VITALS: BP 153/99
== END 2022-01-20 12:16 | disposition home or self-care (01) | DRG 203 ==
LOC: EDUNIT# 15:26 → ER 15:27 → ICU 19:14 → 4TH 01-19 11:40
PROVIDERS: ADMIT Internal Medicine; ATTEND Internal Medicine
DX: J45.902 Unspecified asthma with status asthmaticus (principal); R09.1 Pleurisy; R73.9 Hyperglycemia, unspecified; T38.0X5A Adverse effect of glucocorticoids and synthetic analogues, initial encounter; D64.9 Anemia, unspecified; N20.0 Calculus of kidney; E87.6 Hypokalemia; Z86.16 Personal history of COVID-19; Z20.822 Contact with and (suspected) exposure to COVID-19
CPT/HCPCS: 36415; 36600; 71045; 71260; 80053; 82805; 83605; 83735; 84100; 84145; 84703; 85007; 85025; 85027; 85379; 87081; 87636; 93005; 94640; 94664; 94760; 99291

== ENCOUNTER 2022-03-31 20:46 | Outpatient (CLI) | payer BC, MEDICAID ==
[~2022-03-31 20:46] MED LIST changes: +ALB0.5V INH; +ALBU8.5H9 INH; +CYCL5TAB PO; +DOCU100C37 PO; +FLUT1BLS11 INH; +IPRA3AMP31 INH; +LORA10TA7 PO; +MELO15TA39 PO; +MONT-40 PO; +PRED10TA22 PO; +PSYL1PAC10 PO
== END 2022-04-01 06:26 | disposition home or self-care (01) ==
LOC: SLEEP 20:46
PROVIDERS: ATTEND Nurse Practitioner
DX: G47.33 Obstructive sleep apnea (adult) (pediatric) (principal)
CPT/HCPCS: 95810

== ENCOUNTER 2022-05-24 15:08 | Emergency (ER) | payer BC, MEDICAID ==
[~2022-05-24] VITALS: Ht 160 cm; Wt 68.9 kg
[2022-05-24] MEDS ORDERED: RT-ALBUTEROL SULF 2.5 MG/3 ML PRE-MIX VIAL INH ONE (15:15)
--- NOTE | 2022-05-24 15:23 | ED Cough/URI ---
General Chief Complaint: Respiratory Problems Stated Complaint: ASTHMA ATTACK,COUGH,TROUBLE BREATHING Source: patient Exam Limitations: no limitations History of Present Illness Date Seen by Provider: May 24, 2022 Time Seen by Provider: 15:23 Allergies and Home Medications Allergies Coded Allergies: No Known Drug Allergies (Unverified , 04/01/21) Patient Home Medication List Albuterol Sulfate (Albuterol Sulfate) 2.5 Mg/0.5 Ml Vial.neb, 2.5 MG INH Q4H PRN for SHORTNESS OF BREATH, (Reported) Entered as Reported by: CURT ROCHA on 01/18/22909 Albuterol Sulfate (Proair Hfa) 90 Mcg Hfa.aer.ad, 2 PUFF INH Q6H PRN for SHORTNESS OF BREATH Prescribed by: DORIS JOHN on 01/20/221101 Cyclobenzaprine HCl (Cyclobenzaprine HCl) 5 Mg Tablet, 5 MG PO BID PRN for MUSCLE SPASMS, (Reported) Entered as Reported by: CURT ROCHA on 01/18/22909 Docusate Sodium (Docusate Sodium) 100 Mg Capsule, 100 MG PO BID, (Reported) Entered as Reported by: CURT ROCHA on 01/18/22909 Fluticasone Propion/Salmeterol (Fluticasone-Salmeterol 100-50) 100 Mcg-50 Mcg/Dose Blst.w.dev, 2 PUFF INH Q12H PRN for SHORTNESS OF BREATH, (Reported) Entered as Reported by: CURT ROCHA on 01/18/22909 Ipratropium/Albuterol Sulfate (Iprat-Albut 0.5-3(2.5) mg/3 ml) 0.5 Mg-3 Mg (2.5 Mg Base)/3 Ml Ampul.neb, 3 ML INH RTTID Prescribed by: DORIS JOHN on 01/20/221101 Loratadine (Loratadine) 10 Mg Tablet, 10 MG PO DAILY Prescribed by: DORIS JOHN on 01/20/221101 Meloxicam (Meloxicam) 15 Mg Tablet, 15 MG PO DAILY PRN for MUSCLE CRAMPS, (Reported) Entered as Reported by: CURT ROCHA on 01/18/22909 Methylprednisolone (Methylprednisolone Dose Pack) 4 Mg Tab.ds.pk, MG PO UD, (Reported) Entered as Reported by: CURT ROCHA on 01/18/22 0910 Montelukast Sodium (Montelukast Sodium) 10 Mg Tablet, 10 MG PO HS Prescribed by: DORIS JOHN on 01/20/22 110 Prednisone (Prednisone) 10 Mg Tab.ds.pk, 10 MG PO DAILY Prescribed by: DORIS JHON on 01/20/22 1102 Prednisone (Prednisone) 20 Mg Tab, 40 MG PO DAILY Prescribed by: VIANCA SINGH on 05/24/22 1630 Psyllium Husk (with Sugar) (Metamucil Packet) 3.4 Gram Powd.pack, 3.4 GM PO DAILY, (Reported) Entered as Reported by: CURT ROCHA on 01/18/22 0910 Past Tjqqamo-Mklxzb-Hgcgmq Hx Immunizations Up To Date First/Initial COVID19 Vaccinat: JAN 2021 Second COVID19 Vaccination Ace: [place] Past Medical History Surgery/Hospitalization HX: ASTHMA Surgeries: No Asthma Physical Exam Vital Signs - First Documented 05/24/22 15:15 Temp 36.6 Pulse 114 Resp 22 B/P (MAP) 147/91 (109) Pulse Ox 97 O2 Delivery Room Air Capillary Refill : Height: '" Weight: lbs. oz. kg; 29.37 BMI Method: Progress/Results/Core Measures Suspected Sepsis SIRS Temperature: Pulse: Respiratory Rate: Blood Pressure / Mean: Results/Orders Lab Results Laboratory Tests Test 05/24/22 15:30 Range/Units Influenza Type A (RT-PCR) Not Detected Not Detecte Influenza Type B (RT-PCR) Not Detected Not Detecte SARS-CoV-2 RNA (RT-PCR) Not Detected Not Detecte My Orders Orders - VIANCA SINGH [employer]SULTANT DIETITIAN Albuterol Pre-Mix Nebs (Rt) (Proventil (05/24/22 15:15) Svn Small Volume Nebulizer (05/24/22 15:15) Covid 19 Inhouse Test (05/24/22 15:17) Influenza A And B By Pcr (05/24/22 15:17) Albuterol/Ipra Inhalation Soln (Duoneb I (05/24/22 15:30) Svn Small Volume Nebulizer (05/24/22 15:22) Chest 1 View, Ap/Pa Only (05/24/22 16:04) Ketorolac Injection (Toradol Injection) (05/24/22 16:15) Methylprednisolone Sod Succ (Solu-Medrol (05/24/22 16:15) Rx-Albuterol Inhaler (Rx-Ventolin Hfa In (05/24/22 16:36) Medications Given in ED Current Medications Medications Dose Ordered Sig/Abel Route Start Time Stop Time Status Last Admin Dose Admin Albuterol/ Ipratropium 3 ml ONCE ONCE INH 05/24/22 15:30 05/24/22 15:31 DC 05/24/22 15:27 3 ML Ketorolac Tromethamine 15 mg ONCE ONCE IVP 05/24/22 16:15 05/24/22 16:16 DC 05/24/22 16:12 15 MG Methylprednisolone Sodium Succinate 125 mg ONCE ONCE IVP 05/24/22 16:15 05/24/22 16:16 DC 05/24/22 16:19 125 MG Vital Signs/I&O 05/24/22 05/24/22 15:15 15:27 Temp 36.6 Pulse 114 Resp 22 B/P (MAP) 147/91 (109) Pulse Ox 97 100 O2 Delivery Room Air Room Air Capillary Refill : Departure Impression Primary Impression: Bronchitis Disposition: 01 HOME, SELF-CARE Condition: Improved Departure-Patient Inst. Decision time for Depature: 16:12 Referrals: GENIA HERNÁNDEZ (PCP) Primary Care Physician [facility] (Family) Primary Care Physician Patient Instructions: Acute Bronchitis Add. Discharge Instructions: Plan: 1. Continue to use your albuterol 2 puffs every 4 hours as needed for shortness of breath. 2. Take steroids daily as directed, make sure you take with food to prevent GI upset. 3. Return to the ER if you have any increased worsening shortness of breath, difficulty breathing, new or concerning symptoms. All discharge instructions reviewed with patient and/or family. Voiced understanding. Scripts Ipratropium/Albuterol Sulfate (Iprat-Albut 0.5-3(2.5) mg/3 ml) 0.5 Mg-3 Mg (2.5 Mg Base)/3 Ml Ampul.neb 3 ML IH QID, #14 EACH 1 Refill Prov: FRANCISCOVIANCA THURSTON APRN 05/24/22 Prednisone (Prednisone) 20 Mg Tab 40 MG PO DAILY for 5 Days, #8 TAB 0 Refills Prov: VIANCA SINGH APRN 05/24/22 VIANCA SINGH APRN May 24, 2022 15:23
[2022-05-24] MEDS ORDERED: RT-ALBUTEROL/IPRATROPIUM 3 ML (DUONEB) VIAL INH ONE (15:30)
[2022-05-24] MEDS ORDERED: KETOROLAC 30 MG/ML VIAL IVP ONE (16:15)
[2022-05-24] MEDS ORDERED: methylPREDNISolone 125 MG (Solu-MEDROL) VIAL IVP ONE (16:15)
--- NOTE | 2022-05-24 16:26 | Diagnostic Imaging Report ---
INDICATION: Shortness of air, cough, pain, chest tightness. COMPARISON: Study is compared with exam from 01/19/2022. FINDINGS: Lungs are clear. No failure, effusion, or pneumothorax. IMPRESSION: No acute appearing abnormality. Dictated by: Dictated on workstation # [id number]
[2022-05-24] MEDS ORDERED: PRD20T PO (16:30)
[2022-05-24] MEDS ORDERED: RX-ALBUTEROL INHALER 8.5 GM HFA (PROAIR) IH STA (16:36)
[2022-05-24] MEDS ORDERED: IPRA3AMP31 IH (16:37)
[2022-05-24 16:56] VITALS: BP 107/73
== END 2022-05-24 16:57 | disposition home or self-care (01) ==
LOC: EDUNIT# 15:08 → ER 15:09
DX: J40 Bronchitis, not specified as acute or chronic (principal); Z20.822 Contact with and (suspected) exposure to COVID-19
CPT/HCPCS: 71045; 87636; 94640

== ENCOUNTER 2022-08-23 07:40 | Emergency (ER) | payer BC, MEDICAID ==
[~2022-08-23] VITALS: Ht 160 cm; Wt 85.0 kg
[~2022-08-23 07:40] MED LIST changes: +IPRA3AMP31 IH; +PRD20T PO
[2022-08-23 08:00] VITALS: BP 135/104
--- NOTE | 2022-08-23 08:26 | ED Cough/URI ---
General Chief Complaint: Cough/Cold/Flu Symptoms Stated Complaint: CHEST CONGESTION | SORE THROAT Source: patient Exam Limitations: no limitations History of Present Illness Date Seen by Provider: Aug 23, 2022 Time Seen by Provider: 08:00 Initial Comments Patient is a 32-year-old female with a history of asthma, non-smoker who present s to the emergency room with a chief complaint of nasal congestion mild sore throat, pain at the roof of her mouth and a little facial pain. She resides in a home with her significant other and child who have similar symptoms. Patient reports no fever. No significant cough. No abdominal pain, nausea vomiting or diarrhea. No problems with urination. She has not taken anything for her symptoms. She was concerned because she has a history of developing pneumonia when she gets upper respiratory tract symptoms. She reports no increased use of inhalers. No rashes. She is COVID vaccinated. Timing/Duration: other (24 hours) Severity/Quality: no cough Prior Episodes/Possible Cause: occasional episodes Modifying Factors: Improves With Albuterol Inhaler Associated Symptoms: nasal congestion, nasal drainage, other (facial pain) Allergies and Home Medications Allergies Coded Allergies: No Known Drug Allergies (Unverified , 04/01/21) Patient Home Medication List Home Medication List Reviewed: Yes Albuterol Sulfate (Albuterol Sulfate) 2.5 Mg/0.5 Ml Vial.neb, 2.5 MG INH Q4H PRN for SHORTNESS OF BREATH, (Reported) Entered as Reported by: CURT ROCHA on 01/18/22 0910 Albuterol Sulfate (Proair Hfa) 90 Mcg Hfa.aer.ad, 2 PUFF INH Q6H PRN for SHORTNESS OF BREATH Prescribed by: DORIS JOHN on 01/20/22 1102 Cyclobenzaprine HCl (Cyclobenzaprine HCl) 5 Mg Tablet, 5 MG PO BID PRN for MUSCLE SPASMS, (Reported) Entered as Reported by: CURT ROCHA on 01/18/22 0910 Docusate Sodium (Docusate Sodium) 100 Mg Capsule, 100 MG PO BID, (Reported) Entered as Reported by: CURT ROCHA on 01/18/22 0910 Fluticasone Propion/Salmeterol (Fluticasone-Salmeterol 100-50) 100 Mcg-50 Mcg/Dose Blst.w.dev, 2 PUFF INH Q12H PRN for SHORTNESS OF BREATH, (Reported) Entered as Reported by: CURT ROCHA on 01/18/22 09 Ipratropium/Albuterol Sulfate (Iprat-Albut 0.5-3(2.5) mg/3 ml) 0.5 Mg-3 Mg (2.5 Mg Base)/3 Ml Ampul.neb, 3 ML INH RTTID Prescribed by: DORIS JOHN on 01/20/22 110 Ipratropium/Albuterol Sulfate (Iprat-Albut 0.5-3(2.5) mg/3 ml) 0.5 Mg-3 Mg (2.5 Mg Base)/3 Ml Ampul.neb, 3 ML IH QID Prescribed by: VIANCA SINGH on 05/24/22 1637 Loratadine (Loratadine) 10 Mg Tablet, 10 MG PO DAILY Prescribed by: DORIS JOHN on 01/20/221101 Meloxicam (Meloxicam) 15 Mg Tablet, 15 MG PO DAILY PRN for MUSCLE CRAMPS, (Reported) Entered as Reported by: CURT ROCHA on 01/18/22909 Methylprednisolone (Methylprednisolone Dose Pack) 4 Mg Tab.ds.pk, MG PO UD, (Reported) Entered as Reported by: CURT ROCHA on 01/18/22909 Montelukast Sodium (Montelukast Sodium) 10 Mg Tablet, 10 MG PO HS Prescribed by: DORIS JOHN on 01/20/221101 Prednisone (Prednisone) 10 Mg Tab.ds.pk, 10 MG PO DAILY Prescribed by: DORIS JOHN on 01/20/221101 Prednisone (Prednisone) 20 Mg Tab, 40 MG PO DAILY Prescribed by: VIANCA SINGH on 05/24/22 1630 Psyllium Husk (with Sugar) (Metamucil Packet) 3.4 Gram Powd.pack, 3.4 GM PO DAILY, (Reported) Entered as Reported by: CURT ROCHA on 01/18/22909 Review of Systems Review of Systems Constitutional: see HPI EENTM: nose congestion, other (facial pain/max sinuses; pain at the roof of her mouth yesterday) Respiratory: no symptoms reported Cardiovascular: no symptoms reported Gastrointestinal: no symptoms reported Genitourinary: no symptoms reported Musculoskeletal: no symptoms reported Skin: no symptoms reported Psychiatric/Neurological: No Symptoms Reported All Other Systems Reviewed Negative Unless Noted: Yes Past Bzjjxjz-Uoiaht-Bgskvv Hx Immunizations Up To Date First/Initial COVID19 Vaccinat: Second COVID19 Vaccination Ace: Third COVID19 Vaccination Date: Past Medical History Surgery/Hospitalization HX: ASTHMA Surgeries: No Asthma Physical Exam Vital Signs - First Documented 08/23/22 08:00 Temp 36.5 Pulse 99 Resp 20 B/P (MAP) 135/104 (114) Pulse Ox 97 O2 Delivery Room Air Capillary Refill : Height: '" Weight: lbs. oz. kg; 26.00 BMI Method: General Appearance: WD/WN, no apparent distress Eyes: Bilateral Eye Normal Inspection, Bilateral Eye PERRL, Bilateral Eye EOMI HEENT: PERRL/EOMI, normal ENT inspection, TMs normal, pharynx normal Neck: full range of motion, supple Respiratory: lungs clear, normal breath sounds, no respiratory distress, no accessory muscle use Cardiovascular: regular rate, rhythm Extremities: normal range of motion, normal inspection Neurologic/Psychiatric: alert, normal mood/affect, oriented x 3 Skin: normal color, warm/dry Progress/Results/Core Measures Suspected Sepsis SIRS Temperature: Pulse: Respiratory Rate: Blood Pressure / Mean: Results/Orders Lab Results Laboratory Tests Test 08/23/22 08:20 Range/Units Influenza Type A (RT-PCR) Not Detected Not Detecte Influenza Type B (RT-PCR) Not Detected Not Detecte SARS-CoV-2 RNA (RT-PCR) Not Detected Not Detecte My Orders Orders - CAMILO HARDY MD Covid 19 Inhouse Test (08/23/22 08:27) Influenza A And B By Pcr (08/23/22 08:27) Isolation Central Supply Req (08/23/22 08:27) Vital Signs/I&O 08/23/22 08:00 Temp 36.5 Pulse 99 Resp 20 B/P (MAP) 135/104 (114) Pulse Ox 97 O2 Delivery Room Air Capillary Refill : Departure Impression Primary Impression: Viral syndrome Disposition: 01 HOME, SELF-CARE Condition: Stable Departure-Patient Inst. Decision time for Depature: 09:31 Referrals: GENIA HERNÁNDEZ (PCP) Primary Care Physician [facility] (Family) Primary Care Physician Patient Instructions: Viral Syndrome (DC) Add. Discharge Instructions: Drink plenty fluids to stay well-hydrated. Avoid exposure to tobacco smoke while you are sick. You can take nzfw-eao-fhnputz DayQuil or NyQuil for symptoms of congestion. Ihzj-wvf-kuzcnnb extra strength Tylenol and ibuprofen as needed for body aches/fever. You can take 3 eazz-fqx-wvjcfqu ibuprofen which is 600 mg every 6 hours as needed with food. Return to the emergency department for any new, concerning or emergent complaints. Copy Copies To 1: LISHA HOOKS KATHRYN M MD Aug 23, 2022 08:26
== END 2022-08-23 09:45 | disposition home or self-care (01) ==
LOC: EDUNIT# 07:40 → ER 07:43
DX: B34.9 Viral infection, unspecified (principal); R09.81 Nasal congestion; R51.9 Headache, unspecified; Z20.822 Contact with and (suspected) exposure to COVID-19
CPT/HCPCS: 87636; 99283